=== PATIENT | female | born 1975 | race Caucasian/White ===

== ENCOUNTER → 2018-10-15 08:29 | Outpatient (CLI) | payer OTHER, SELFPAY ==
[2018-10-15 08:37] LABS: Mucous, Urine 0 SEEN /hpf (<or=2+); Red Blood Cells-Urine 0 SEEN /hpf (0-5); Squamous Epithelial Cells - UA 0 SEEN /hpf (5-10); White Blood Cells 0 SEEN /hpf (0-5)
[2018-10-15 10:14] LABS: Absolute Lymphocyte Count 2.08 X10^3/ul (0.83-4.51); Absolute Neutrophil Count 2.3 X10^3/uL (2.0-7.7); Basophil# 0.01 X10^3/uL; Basophil% 0.2 % (0-1); Eosinophil# 0.06 X10^3/uL; Eosinophils% 1.3 % (0-5); Hemoglobin 14.4 g/dl (12.0-15.0); Lymphocyte # 2.08 X10^3/ul (4.0); Lymphocyte % 44.3 % (19-41); Mean Corp Hgb Conc 34.3 g/gl (32-36); Mean Corpuscular Hgb 30.5 pg (27.0-32.0); Mean Platelet Vol. 10.4 fl (6.2-12.0); Monocyte# 0.22 X10^3/uL; Monocyte% 4.7 % (0-10); Neutrophil # 2.32 X10^3/uL (2.7-7.7); Neutrophil % 49.5 % (47-70); Platelet Count 262 K/mm3 (150-450); RBC Distribution Width CV 12.7 % (11.6-14.6); RBC Distribution Width SD 41.5 fl (35.1-43.9); Red Blood Count 4.72 M/mm3 (4.2-5.4); White Blood Count 4.7 K/mm3 (4.4-11.0)
[2018-10-15 10:15] LABS: Color, Urine Yellow (Yellow); Glucose, Dipstick 1000 mg/dl (Normal); Ketone-Dipstick Negative (Negative); Leukocyte Esterase-Dipstick Negative /ul (Negative); Nitrite-Dipstick Negative (Negative); Occult Blood-Urine Negative /ul (Negative); POSITIVE COUNT NO; POSITIVE DIFFERENTIAL NO; POSITIVE MORPHOLOGY NO; Protein-Dipstick Negative (Negative); Specific Gravity, Urine 1.015 (1.002-1.030); Urine Bilirubin Dipstick Negative (Negative); Urine Clarity Clear (Clear); Urine Urobilinogen Normal (Normal)
[2018-10-15 10:24] LABS: Bacteria RARE /hpf (None Seen); Yeast-Urine 1+ /hpf (None Seen)
[2018-10-15 10:37] LABS: Microalbumin,Random Urine 7.2 mg/L (NO RANGE EST.); Microalbumin:Creatinine Ratio 5.6 mg/g CRE (<30 mg/g CRE)
[2018-10-15 10:47] LABS: ALB/GLOB Ratio 1.1 RATIO (0.9-2.4); AST(SGOT) 19 U/L (15-37); Alanine Aminotransfer ALT/SGPT 64 U/L (13-56); Alkaline Phosphatase 88 U/L (45-117); Anion Gap 9 (5-15); BUN 12 mg/dL (7-18); BUN/Creat Ratio 14.3 RATIO (10-20); Calcium,Total 8.7 mg/dL (8.5-10.1); Chloride 100 mmol/L (98-107); Cholesterol 174 mg/dL (200); Creatinine, Serum 0.84 mg/dL (0.55-1.02); EST Glomerular Filtration Rate 79 mL/min (>60); Est Glom Filt Rate - Afr Amer 96 mL/min (>60); Globulin 3.5 g/dL (2.2-4.2); Glucose 292 mg/dL (74-106); Hemoglobin A1c 10.7 % (4.2-6.3); High Density Lipoprotein 32 mg/dL; Potassium 4.1 mmol/L (3.5-5.1); Protein, Total 7.5 g/dL (6.4-8.2); Sodium Level 136 mmol/L (136-145); Thyroid Stim Hormone (TSH) 0.65 uIU/mL (0.358-3.74); Triglycerides 366 mg/dL; Very Low Density Lipoprotein 73 mg/dL (5-40)
--- OUTSIDE RECORDS SUMMARY | 2018-12-17 09:03 | XMS RPT_ITS ---
:1975 Author Organization OHIP Care Team Providers Name Role Phone JAK ELLINGTON Attending Unavailable MINNIE BRYAN, DINORA Stokes Attending Unavailable LIMA QUIÑONES, NAVEEN Corado Primary Care Unavailable Naveen Sullivan Attending Unavailable Naveen Sullivan Primary Care Unavailable PROBLEMS PROBLEMS DATE TYPE CONDITION / CODE ATTENDING STATUS SOURCE 10/15/2018 Unknown E11.9 - Type 2 Naveen Sullivan Active Kathryn diabetes mellitus [facility] without Hospital complications / Repository E11.9(ICD-10) 05/20/2018 Active Unspecified JAK ELLINGTON Active [facility] perforation of [facility] tympanic membrane, Repository left ear / H72.92(ICD-10) PROCEDURES PROCEDURES No Procedure Records FoundRESULTS RESULTS CBC W/DIFF, AUTOMATED Collected: 10/15/2018 Status: F Source: KATHRYN 8:36 AM [facility] REPOSITORY TYPE CODE TESTS RESULT OUT OF RANGE REFERENCE UNITS LAB L100.1000 4.4-11.0 K/mm3 Normal WBC 4.7 LAB L100.1200 4.2-5.4 M/mm3 Normal RBC 4.72 LAB L100.1300 12.0-15.0 g/dl Normal HGB 14.4 LAB L100.1400 37-47 % Normal HCT 42.0 LAB L100.1500 81-99 fL Normal MCV 89.0 LAB L100.1600 27.0-32.0 pg Normal MCH 30.5 LAB L100.1700 32-36 g/gl Normal MCHC 34.3 LAB L100.1810 11.6-14.6 % Normal RDW CV 12.7 LAB L100.1820 35.1-43.9 fl Normal RDW SD 41.5 LAB L100.1900 150-450 K/mm3 Normal PLT 262 LAB L100.2000 6.2-12.0 fl Normal MPV 10.4 LAB L100.2100 47-70 % Normal NEUT% 49.5 LAB L100.2200 19-41 % High LY% 44.3 LAB L100.2300 0-10 % Normal MONO% 4.7 LAB L100.2400 0-5 % Normal EO% 1.3 LAB L100.2500 0-1 % Normal BASO% 0.2 LAB L100.2550 0.0-0.9 % Normal IM GRAN % 0.000 Result Comment: IG% - Immature Granulocytes (promyelocytes, myelocytes and metamyelocytes) > 1% indicates that a LEFT SHIFT is Present. LAB L100.2620 2.0-7.7 X10 3/uL Normal Absolute Neut 2.3 LAB L100.2720 0.83-4.51 X10 3/ul Normal Absolute Lymph 2.08 Performed By: #### L100.0100 #### [facility] [address] [place], [place], [address] URINALYSIS, COMPLETE Collected: 10/15/2018 Status: F Source: KATHRYN 8:36 AM [facility] REPOSITORY Order Comment: How was Urine Obtained? CLEAN CATCH TYPE CODE TESTS RESULT OUT OF RANGE REFERENCE UNITS LAB L400.3000 Yellow COLOR Normal Yellow LAB L400.3050 Clear Normal CLARITY Clear LAB L400.3200 Normal mg/dl High GLUCOSE, UR 1000 LAB L400.3300 Negative mg/dL Normal BILIRUBIN URINE Negative LAB L400.3400 Negative mg/dl Normal KETONE UR Negative LAB L400.3465 1.002-1.030 Normal SP.GR. DIPSTX 1.015 LAB L400.3550 5.0 - 8.0 pH UR Normal 6.0 LAB L400.3600 Negative mg/dl PROT Normal DIPSTX Negative LAB L400.3700 Normal mg/dl Normal UROBILI Normal LAB L400.3750 Negative Normal NITRITE UR Negative LAB L400.3780 Negative /ul Normal OCCULT BLOOD-UR Negative LAB L400.3800 Negative /ul LEUK Normal ESTERASE Negative LAB L400.4050 0-5 /hpf WBC 0 Normal SEEN LAB L400.4100 0-5 /hpf 0 Normal RBC-UA SEEN LAB L400.4150 5-10 /hpf SQUAM 0 Normal EPI SEEN LAB L400.4300 None Seen /hpf Normal BACTERIA RARE LAB L400.4350 <or=2+ /hpf 0 Normal MUCUS, URINE SEEN LAB L400.5200 None Seen /hpf 1+ Normal YEAST-URINE Performed By: #### L400.0001 #### [facility] [address] [place], [address] MICROALB:CREAT Collected: 10/15/2018 Status: F [facility]36 AM [facility] REPOSITORY TYPE CODE TESTS RESULT OUT OF RANGE REFERENCE UNITS LAB L501.1200 NO RANGE EST. mg/dL Normal UR CREAT 128.00 LAB L502.0500 NO RANGE EST. mg/L Normal 7.2 MICROALBUMIN ,UR LAB L502.0600 <30 mg/g CRE mg/g CRE Normal 5.6 MALB:CREAT Performed By: #### L502.0250 #### [facility] [address] [place], [place], [address] COMPREHENSIVE METABOLIC Collected: 10/15/2018 Status: F Source: K[place]HRYN [facility] 8:36 AM [facility] REPOSITORY TYPE CODE TESTS RESULT OUT OF RANGE REFERENCE UNITS LAB L501.0100 74-106 mg/dL High GLU 292 Result Comment: Glucose result greater than or equal to 200 mg/dL suggests DIABETES MELLITUS per A.D.A. criteria. Please note revised GLUCOSE reference range effective 2017. LAB L501.1000 7-18 mg/dL Normal BUN 12 LAB L501.1100 0.55-1.02 mg/dL Normal CREAT,SERUM 0.84 Result Comment: The validity of the calculated GFR AND GFRAA in patients over 70 years has not been determined. Clinical correlation is essential. LAB L501.1110 >60 mL/min Normal EST GFR 79 Result Comment: Non- GFR Calc LAB L501.1115 >60 mL/min Normal EST GFR - AA 96 Result Comment: GFR Calc LAB L501.1300 10-20 RATIO Normal BUN/CRE 14.3 LAB L501.1500 6.4-8.2 g/dL T Normal PROT 7.5 LAB L501.1800 3.2-5.0 g/dL Normal ALB 4.0 LAB L501.1950 2.2-4.2 g/dL Normal GLOB 3.5 LAB L501.2000 0.9-2.4 RATIO Normal A/G 1.1 LAB L501.2200 8.5-10.1 mg/dL CA Normal 8.7 LAB L501.4100 15-37 U/L Normal AST 19 LAB L501.4305 45-117 U/L Normal ALK P 88 LAB L501.4405 13-56 U/L High ALT 64 LAB L501.4600 0.20-1.00 mg/dL T Normal BILI 0.60 LAB L501.5300 136-145 mmol/L NA Normal 136 LAB L501.5600 3.5-5.1 mmol/L K Normal 4.1 LAB L501.5900 98-107 mmol/L CL Normal 100 LAB L501.6100 21.0-32.0 mmol/L Normal CO2 27.0 LAB L501.6200 5-15 Normal GAP 9 Performed By: #### L500.4050, L500.4100, L501.9520 #### [facility] [address] [place], [address] LIPID PROFILE Collected: 10/15/2018 Status: F Source: [place] 8:36 AM [facility] REPOSITORY TYPE CODE TESTS RESULT OUT OF RANGE REFERENCE UNITS LAB L501.4900 200 mg/dL Normal CHOL 174 Result Comment: <200 mg/dL Desirable 200-240 mg/dL Borderline >240 mg/dL High Risk LAB L501.5000 mg/dL High TRIG 366 Result Comment: The drugs N-Acetylcysteine and Metamizole may falsely depress this assay. Serum Triglycerides Reference Interval Normal <150 mg/dL Borderline high 150 - 199 mg/dL High 200 - 499 mg/dL Very High > or = 500 mg/dL LAB L501.6400 mg/dL Low HDL 32 Result Comment: The drugs N-Acetylcysteine and Metamizole may falsely depress this assay. Reference Range HDL <40 mg/dL Low HDL Cholesterol HDL >or= 60 mg/dL High HDL Cholesterol LAB L501.6500 0-130 mg/dL Normal LDL 69 LAB L501.6600 5-40 mg/dL High VLDL 73 Performed By: #### L500.4050, L500.4100, L501.9520 #### [facility] [address] [place], [address] THYROID STIM HORMONE Collected: 10/15/2018 Status: F Source: KATHRYN (TSH) 8:36 AM [facility] REPOSITORY TYPE CODE TESTS RESULT OUT OF RANGE REFERENCE UNITS LAB L501.9520 0.358-3.74 uIU/mL Normal TSH 0.65 Performed By: #### L500.4050, L500.4100, L501.9520 #### [facility] [address] [place], [address] HEMOGLOBIN A1C Collected: 10/15/2018 Status: F Source: KATHRYN 8:36 AM [facility] REPOSITORY TYPE CODE TESTS RESULT OUT OF RANGE REFERENCE UNITS LAB L501.9985 4.2-6.3 % High HGB A1C 10.7 Performed By: #### L501.9985 #### [facility] [address] [place], [address] Observed: 09/26/2018 Status: F Source: [facility] 3:49 AM [facility] REPOSITORY . MICRO - Microbiology PROCEDURE: Beta Strep Antigen with Cult if Ind [*1] SOURCE: Throat BODY SITE: COLLECTED DATE/TIME: 09/26/2018 03:49 EST RECEIVED DATE/TIME: 09/26/2018 03:52 EST START DATE/TIME: 09/26/2018 03:52 EST FREE TEXT SOURCE: FINAL REPORTS Final Report [] Verified Date/Time/Personnel: 09/26/2018 04:02 EST Group A streptococcus Antigen Antigen Screen: Positive for Group A Strep COMMENT: Results are not quantitative. Positive results have been reported in carriers and individuals having low numbers of beta Strep. False positive results have been reported. Performing Locations *1: This test was performed at: [address] [place], [address] , [place] Performed By: #### BSA #### [facility] [address] [place] [id number] PROGRESS Observed: 05/20/2018 Status: COMPLETED Source: YOLANDA 1:22 PM [facility] REPOSITORY HNO ID: [id number] Author: Jak Ellington Service: (none) Author Type: Physician Type: Progress Notes Filed: 05/20/2018 1:46 PM Note Text: Patient presents with: Ear Pain: left HPI: Feeling left ear pain for 3 days. Positive symptoms: left Earache, blood and waxy drainage this morning, hoarse voice, Post nasal drainage? 3 ear infections per year. Negative symptoms: Cough, Nasal Congestion, Rhinorrhea, Fever, URI, OTC: otitis externa drops hurt significantly last night qtip use in the distal canal. Hx of TM tubes as a young child. PAST MEDICAL HISTORY Diagnosis Date - Abnormal glandular Papanicolaou smear of cervix 2001 Abn. Pap smear (cervix) - DEPRESSION 2009 AFTER MISCARRIAGE - Diabetes mellitus of mother, complicating , childbirth, or the puerperium, unspecified as to episode of care(648.00) Gestational diabetes - Diabetes, gestational - Elevated liver enzymes 06/2009 s/p gall bladder removal - Irregular periods - PCOS (polycystic ovarian syndrome) - Psoriasis - Unspecified asthma(493.90) mild - Varicosities VARICOSE VEIN RIGHT LEG PAST SURGICAL HISTORY Procedure Laterality Date - DELIVERY ONLY , low transverse x 2 - COLPOSCOPY (VAGINOSCOPY) 2001 Colposcopy - DANDC, DIAG AND/OR THERAPEUTIC 07/21/2010 Dilation AND curettage and Dx Laparoscopy - HERNIA REPAIR W/MESH 05/2012 abdominal wall pubic bone to suprapubic - HYSTERECTOMY HX N/A 2012 C-HYST for accreta - Total Hysterectomy and Bilateral salpingectomy - INSERTION OF IUD 09/13/2009 Mirena - IUD REMOVAL (RECREATION [employer] DE[employer])_*FL 04/08/2010 - LAPAROSCOPIC CHOLEYCYSTECTOMY 03/2012 Cholecystectomy, lap - REMOVAL ADENOIDS,PRIMARY,<12 Y/O Adenoidectomy - REMOVAL OF TONSILS,<12 Y/O Tonsillectomy MEDICATIONS: Current Outpatient Prescriptions: fluticasone (FLONASE) 50 mcg/actuation nasal spray Use 1 [facility] [place] in each nostril once daily. VITAMIN A ORAL Take by mouth. metFORMIN (GLUCOPHAGE) 500 mg tablet Take 1 tablet by mouth daily with breakfast. CALCIUM CARBONATE/VITAMIN D3 (VITAMIN D-3 ORAL) Take by mouth. FLUTICASONE PROPIONATE (FLONASE NASAL) Use in the nose. No current facility-administered medications for this visit. Facility-Administered Medications Ordered in Other Visits: insulin NPH human 12 Units injection (intermediate acting) (NovoLIN N, HumuLIN N) 12 Units SUBCUTANEOUS AT BEDTIME insulin lispro 10 Units injection (rapid acting) (HumaLOG) 10 Units SUBCUTANEOUS DAILY wDINNER insulin lispro 5 Units injection (rapid acting) (HumaLOG) 5 Units SUBCUTANEOUS DAILY wLUNCH insulin lispro injection (rapid acting) (HumaLOG) SUBCUTANEOUS w MEALS AND HS insulin lispro 10 Units injection (rapid acting) (HumaLOG) 10 Units SUBCUTANEOUS DAILY WITH BREAKFAST ALLERGIES: ALLERGIES Allergen Reactions - Flowering Trees [Tr* Other: See Comments lilac = sneezing VITALS: BP 112/80 Pulse 64 Temp 36.6 ?C (97.9 ?F) (Left Tympanic) Resp 16 Wt 102.5 kg (226 lb) LMP 12/28/2012 ? No BMI 37.61 kg/m? PHYSICAL EXAM: GEN: Pleasant, in no acute distress. HEENT: PERRL, EOMI, conjunctiva clear Ears: canals clear, left tympanic membrane has scaring is translucent, +erythema, round perforation at 7:[facility] between the umbo and the peripheral border, no drainage. RTM without erythema, bulge, or effusion Sinuses: non-tender frontal sinus, non-tender maxillary sinuses Throat: moist mucous membranes, no erythema, no exudate Neck: supple, no thyromegaly, no lymphadenopathy HEART: regular rate and rhythm, no murmurs LUNGS: clear to auscultation, no wheezes or crackles, no increased WOB ASSESSMENT/PLAN: 1. Perforation of left tympanic membrane - ICD9: 384.20, ICD10: H72.92 - CONSULT TO ENT - AMOXICILLIN 875 MG-POTASSIUM CLAVULANATE 125 MG TABLET Jak Ellington MD CNOV Observed: 05/20/2018 Status: COMPLETED Source: [place] 1:15 PM [facility] REPOSITORY Office Visit (WSTR) MAYUR RAMOS ([id number]) 1975 F Date Time Provider Department 05/20/18 1:15 PM JAK ELLINGTON [facility] During your visit today, we recorded the following information about you: Temperature Pulse Respiration Blood pressure 97.9 degrees 64/minute 16/minute 112/80 Weight 102.5 kg Jak Ellington MD 05/20/2018 1:46 PM Signed Patient presents with: Ear Pain: left HPI: Feeling left ear pain for 3 days. Positive symptoms: left Earache, blood and waxy drainage this morning, hoarse voice, Post nasal drainage? 3 ear infections per year. Negative symptoms: Cough, Nasal Congestion, Rhinorrhea, Fever, URI, OTC: otitis externa drops hurt significantly last night qtip use in the distal canal. Hx of TM tubes as a young child. PAST MEDICAL HISTORY Diagnosis Date - Abnormal glandular Papanicolaou smear of cervix 2001 Abn. Pap smear (cervix) - DEPRESSION 2009 AFTER MISCARRIAGE - Diabetes mellitus of mother, complicating , childbirth, or the puerperium, unspecified as to episode of care(648.00) Gestational diabetes - Diabetes, gestational - Elevated liver enzymes 06/2009 s/p gall bladder removal - Irregular periods - PCOS (polycystic ovarian syndrome) - Psoriasis - Unspecified asthma(493.90) mild - Varicosities VARICOSE VEIN RIGHT LEG PAST SURGICAL HISTORY Procedure Laterality Date - DELIVERY ONLY , low transverse x 2 - COLPOSCOPY (VAGINOSCOPY) 2001 Colposcopy - DANDC, DIAG AND/OR THERAPEUTIC 07/21/2010 Dilation AND curettage and Dx Laparoscopy - HERNIA REPAIR W/MESH 05/2012 abdominal wall pubic bone to suprapubic - HYSTERECTOMY HX N/A 2012 C-HYST for accreta - Total Hysterectomy and Bilateral salpingectomy - INSERTION OF IUD 09/13/2009 Mirena - IUD REMOVAL (RECREATION [employer] DE[employer])_*FL 04/08/2010 - LAPAROSCOPIC CHOLEYCYSTECTOMY 03/2012 Cholecystectomy, lap - REMOVAL ADENOIDS,PRIMARY,<12 Y/O Adenoidectomy - REMOVAL OF TONSILS,<12 Y/O Tonsillectomy MEDICATIONS: Current Outpatient Prescriptions: fluticasone (FLONASE) 50 mcg/actuation nasal spray Use 1 [facility] [place] in each nostril once daily. VITAMIN A ORAL Take by mouth. metFORMIN (GLUCOPHAGE) 500 mg tablet Take 1 tablet by mouth daily with breakfast. CALCIUM CARBONATE/VITAMIN D3 (VITAMIN D-3 ORAL) Take by mouth. FLUTICASONE PROPIONATE (FLONASE NASAL) Use in the nose. No current facility-administered medications for this visit. Facility-Administered Medications Ordered in Other Visits: insulin NPH human 12 Units injection (intermediate acting) (NovoLIN N, HumuLIN N) 12 Units SUBCUTANEOUS AT BEDTIME insulin lispro 10 Units injection (rapid acting) (HumaLOG) 10 Units SUBCUTANEOUS DAILY wDINNER insulin lispro 5 Units injection (rapid acting) (HumaLOG) 5 Units SUBCUTANEOUS DAILY wLUNCH insulin lispro injection (rapid acting) (HumaLOG) SUBCUTANEOUS w MEALS AND HS insulin lispro 10 Units injection (rapid acting) (HumaLOG) 10 Units SUBCUTANEOUS DAILY WITH BREAKFAST ALLERGIES: ALLERGIES Allergen Reactions - Flowering Trees [Tr* Other: See Comments lilac = sneezing VITALS: BP 112/80 Pulse 64 Temp 36.6 ?C (97.9 ?F) (Left Tympanic) Resp 16 Wt 102.5 kg (226 lb) LMP 12/28/2012 ? No BMI 37.61 kg/m? PHYSICAL EXAM: GEN: Pleasant, in no acute distress. HEENT: PERRL, EOMI, conjunctiva clear Ears: canals clear, left tympanic membrane has scaring is translucent, +erythema, round perforation at 7:00 [facility] between the umbo and the peripheral border, no drainage. RTM without erythema, bulge, or effusion Sinuses: non-tender frontal sinus, non-tender maxillary sinuses Throat: moist mucous membranes, no erythema, no exudate Neck: supple, no thyromegaly, no lymphadenopathy HEART: regular rate and rhythm, no murmurs LUNGS: clear to auscultation, no wheezes or crackles, no increased WOB ASSESSMENT/PLAN: 1. Perforation of left tympanic membrane - ICD9: 384.20, ICD10: H72.92 - CONSULT TO ENT - AMOXICILLIN 875 MG-POTASSIUM CLAVULANATE 125 MG TABLET Jak Ellington MD Referring Provider: SELF [200] Allergies As of Date: 05/20/2018 Noted Allergy Reaction FLOWERING TREES (TREES) 08/01/2013 14 - Other: See Comments Comments: lilac = sneezing Date Reviewed: 05/20/2018 Reviewed by: Magalys Peoples Ma - Fully Assessed Reason for Visit: Ear Pain [817] Cmt: left Primary Visit Diagnosis:Perforation of left tympanic membrane [H72.92] Order(s):CONSULT TO ENT [9008] Order #: [id number]: 1 amoxicillin-clavulanic acid (AUGMENTIN) 875-125 mg per tabletTake 1 tablet by mouth twice daily for 7 days.Disp: 14 tabletRfl: 0 Prescriptions as of 05/20/2018 Sig: FLUTICASONE 50 MCG/ACTUATION * Use 1 [facility] in each nostril o* VITAMIN A ORAL Take by mouth. METFORMIN 500 MG TABLET Take 1 tablet by mouth daily * VITAMIN D-3 ORAL Take by mouth. AMOXICILLIN 875 MG-POTASSIUM * Take 1 tablet by mouth twice * FLONASE NASAL Use in the nose. Problem List As Of Date 05/20/2018 Noted Resolved Diabetes Mellitus, Antepartum [O24.919] INVALID FOR*05/24/2009 Supervision of Normal First [Z34.00] INVALID FOR*05/24/2009 IUD surveillance [Z30.431] INVALID FOR*07/18/2010 Abdominal pain, right lower quadrant [R10.31] INVALID FOR*05/02/2011 Elevated liver enzymes [R74.8] INVALID FOR*10/13/2011 Other and unspecified ovarian cyst [N83.209] INVALID FOR*10/13/2011 Missed [O02.1] INVALID FOR*10/13/2011 Abdominal pain, right upper quadrant [R10.11] INVALID FOR*10/13/2011 Unspecified high-risk [O09.90] INVALID FOR*11/29/2011 Previous delivery, antepartum conditio*INVALID FOR*11/29/2011 Gestational diabetes mellitus, class A1 [O24.41*INVALID FOR*11/29/2011 PCOS (polycystic ovarian syndrome) [E28.2] INVALID FOR* Advanced maternal age in [TRA0370] INVALID FOR*09/11/2016 More... History of [Z98.891] INVALID FOR*09/11/2016 More... History of depression [Z86.59] INVALID FOR* More... Abnormal laboratory test result [R89.9] INVALID FOR* More... History of asthma [Z87.09] INVALID FOR* More... More... Hearing deficit [H91.90] INVALID FOR* More... Varicose veins [I83.90] INVALID FOR* More... Immunization due [Z23] INVALID FOR* More... Gestational diabetes [O24.419] INVALID FOR*09/11/2016 More... High-risk , elderly multigravida [O09.*INVALID FOR*09/11/2016 More... UTI in [O23.40] INVALID FOR*09/11/2016 Placenta previa with hemorrhage, antepartum [O4*INVALID FOR*09/11/2016 Placenta accreta in third trimester [O43.213] INVALID FOR*09/11/2016 Elderly multigravida with antepartum condition *INVALID FOR*09/11/2016 Obesity in , antepartum [O99.210] INVALID FOR*09/11/2016 Excessive growth affecting management of *INVALID FOR* Transverse lie with problem [O32.2XX0]INVALID FOR*09/11/2016 Wound cellulitis [L03.90] INVALID FOR*09/11/2016 Prescriptions ordered this encounter Disp Refills Start End AMOXICILLIN 875 MG-POTASSIUM CLAVULA* 14 t* 0 05/20/2018 05/27/2018 Route: ORAL Sig: Take 1 tablet by mouth twice daily for 7 days. Encounter Status:Closed by JAK ELLINGTON MD on 05/20/18 ALLERGIES ALLERGIES DATE TYPE / CODE NAME / CODE REACTION SEVERITY SOURCE 11/29/2015 Drug No Known Unknown [facility] Allergy/4160 Allergies/F00 Hospital 70148(SNOMED 1848453(RXNOR Repository CT) M) 08/01/2013 Environ/4201 TREES OTHER: SEE C [facility] [address]248(SNOMED [facility] [place] [facility]) Repository ENCOUNTERS ENCOUNTERS ADMIT/DISCHARGE ACCOUNT NUMBER ADMITTING ENCOUNTER LOCATION SOURCE CLASS 10/15/2018 [id number] Ambulatory [facility] ding:[id number] Repository 09/26/2018/09/26/19 [id number] Emergency BBuilding:SHAHNAZ Neal [address] [place] [address] Repository 05/20/2018/05/21/20 [id number] Ambulatory [address] Repository PAYERS PAYERS ENCOUNTER GUARANTOR PAYER SUBSCRIBER SOURCE 10/15/2018 Matt Corado Primary MAYUR Duqueoster [id number] [facility] Number: [id number] [place] [id number] Repository [address]Bup: 330) Date:7708-11-75BD [phone] () [address] [place] [phone]: 10/15/2018 [facility]LF [facility] Number: Effective Repository Date:2018-10-15 09/26/2018 MAYUR Gomes Primary [facility] [id number] [employer] Number: [id number] Repository [place] Effective [place], [place] Date:2018-09-26 [place] [address]~[facility] [id number] Name:[id number] [id number]: [phone] [phone] Tel: [phone] ([phone] ([phone] ([phone])
== END ==
PROVIDERS: Family Provider Family Medicine; PCP Family Medicine; Visit Provider Family Medicine
DX: E11.9 Type 2 diabetes mellitus without complications (principal)
CPT/HCPCS: 36415; 80053; 80061; 81001; 82043; 82570; 83036; 84443; 85025

== ENCOUNTER → 2019-05-27 08:55 | Outpatient (CLI) | payer OTHER, SELFPAY ==
[2019-05-27 10:22] LABS: Absolute Lymphocyte Count 2.24 X10^3/uL (0.83-4.51); Absolute Neutrophil Count 3.8 X10^3/uL (2.0-7.7); Basophil# 0.03 X10^3/uL; Basophil% 0.5 % (0-1); Eosinophil# 0.11 X10^3/uL; Eosinophils% 1.7 % (0-5); Hematocrit 40.3 % (37-47); Hemoglobin 13.7 g/dL (12.0-15.0); Lymphocyte # 2.24 X10^3/ul (4.0); Lymphocyte % 34.4 % (19-41); Mean Corpuscular Hgb 30.9 pg (27.0-32.0); Mean Corpuscular Volume 90.8 fL (81-99); Mean Platelet Vol. 9.8 fl (6.2-12.0); Monocyte# 0.29 X10^3/uL; Monocyte% 4.4 % (0-10); NRBC Flagged by Analyzer 0 % (0-5); Neutrophil # 3.83 X10^3/uL (2.7-7.7); Neutrophil % 58.7 % (47-70); Platelet Count 239 K/mm3 (150-450); RBC Distribution Width CV 12.6 % (11.6-14.6); RBC Distribution Width SD 41.9 fl (35.1-43.9); Red Blood Count 4.44 M/mm3 (4.2-5.4); White Blood Count 6.5 K/mm3 (4.4-11.0)
[2019-05-27 10:30] LABS: International Normalized Ratio 1.1; Prothrombin Time (Protime)PT. 13.5 SECONDS (11.7-14.9)
[2019-05-27 10:48] LABS: Hemoglobin A1c 5.5 % (4.2-6.3)
[2019-05-27 10:49] LABS: ALB/GLOB Ratio 0.9 RATIO (0.9-2.4); AST(SGOT) 28 U/L (15-37); Alanine Aminotransfer ALT/SGPT 80 U/L (13-56); Albumin, Serum 3.9 g/dL (3.2-5.0); Alkaline Phosphatase 100 U/L (45-117); Anion Gap 6 (5-15); BUN 9 mg/dL (7-18); BUN/Creat Ratio 10.1 RATIO (10-20); Calcium,Total 8.9 mg/dL (8.5-10.1); Chloride 105 mmol/L (98-107); Creatinine, Serum 0.89 mg/dL (0.55-1.02); EST Glomerular Filtration Rate 74 mL/min (>60); Est Glom Filt Rate - Afr Amer 89 mL/min (>60); Globulin 4.4 g/dL (2.2-4.2); Glucose 121 mg/dL (74-106); Potassium 4.5 mmol/L (3.5-5.1); Protein, Total 8.3 g/dL (6.4-8.2); Sodium Level 136 mmol/L (136-145)
== END ==
PROVIDERS: Family Provider Family Medicine; PCP Family Medicine; Referring Provider Family Medicine; Visit Provider Family Medicine
DX: K43.2 Incisional hernia without obstruction or gangrene (principal)
CPT/HCPCS: 36415; 80053; 83036; 85025; 85610

== ENCOUNTER → 2019-06-06 14:50 | Outpatient (CLI) | payer OTHER, SELFPAY ==
[2019-06-02 13:16] VITALS: BMI 36.8
--- NOTE | 2019-06-06 14:56 | CT_ITS ---
STUDY: CT ABDOMEN AND PELVIS WITH CONTRAST REASON FOR EXAM: Female, 44 years old. Incisional hernia left lower quadrant and umbilical pain RADIATION DOSAGE (If Supplied By Facility): CTDIvol = ( 16.99 ) mGy, DLP = ( 1342.65 ) mGycm TECHNIQUE: CT images were obtained from the dome of the diaphragm to the symphysis pubis without oral contrast. 100 IV/Oral Isovue 300 was administered. Sagittal and coronal images were reconstructed. Individualized dose optimization techniques were used for this CT. COMPARISON: 20 March 2017 FINDINGS: The visualized lung bases are unremarkable. The visualized portions of the heart are within normal limits. Normal liver. Gallbladder is surgically removed. There is no biliary dilation.. Normal spleen. Normal pancreas. There is a 1.6 cm left adrenal lesion, incompletely characterized on this single phase exam. This was present in 2017 and stable, most probably representing benign adrenal adenoma. Normal right kidney. Normal left kidney. There is no intestinal obstruction. Normal abdominal aorta. Normal inferior vena cava. Normal retroperitoneum. Normal urinary bladder. Uterus is surgically removed. There is a small paraumbilical hernia with a wide opening containing fat. There are no associated bowel loops or inflammatory change. Inguinal canals are closed. There is an infraumbilical midline vertical incision. Normal osseous structures. CT/Abdomen/Pelvis WITH Contrast IMPRESSION: 1. Small fat-containing paraumbilical incisional hernia. 2. Presumed left 1.6 cm adrenal adenoma. Correlation with endocrinologic profiles is advised. Electronically Signed: Apolinar Garza, at 15:26 EDT Tel , Service support ,
== END ==
PROVIDERS: Family Provider Family Medicine; PCP Family Medicine; Referring Provider Family Medicine; Visit Provider Family Medicine
DX: K43.2 Incisional hernia without obstruction or gangrene (principal)
CPT/HCPCS: 74177; Q9967

== ENCOUNTER 2019-06-24 17:36 | Inpatient (IN) | payer OTHER, SELFPAY ==
[2019-06-09 09:11] VITALS: BMI 36.8
[2019-06-24] VITALS (9 sets, daily range): BP systolic 100–133; BP diastolic 63–89; PULSE 98–114; RESP 14–22; TEMP 37.6–39.4; O2SAT 93–98; BMI 37.3; BMI 38.2
--- NOTE | 2019-06-24 18:05 | EKG12_ITS ---
Test Reason : FEVER Blood Pressure : / mmHG Vent. Rate : 104 BPM Atrial Rate : 104 BPM P-R Int : 132 ms QRS Dur : 084 ms QT Int : 338 ms P-R-T Axes : 030 -13 026 degrees QTc Int : 444 ms Sinus tachycardia Otherwise normal ECG Confirmed by JAM COLLINS ([id number]), video editor KAYCEE STALLINGS ([id number]) on 06/30/2019 12:06:31 PM Referred By: Baltazar Cole Confirmed By:JAM COLLINS
--- NOTE | 2019-06-24 18:10 | RAD_ITS ---
STUDY: X-RAY CHEST REASON FOR EXAM: Female, 44 years old. Fever TECHNIQUE: Single frontal view of the chest. COMPARISON: September 19, 2016 FINDINGS: Right upper lobe airspace disease. There is no demonstrated pleural abnormality. Normal size heart. Normal mediastinum and caio. Normal visualized pulmonary arteries. Normal visualized aortic arch and descending thoracic aorta. Normal visualized thoracic spine. Normal visualized ribs, clavicles, and shoulders. There is no demonstrated abnormality of the visualized soft tissue structures of the upper abdomen. RAD/Chest 1 View (Portable) IMPRESSION: Right upper lobe airspace disease. Recommend follow-up to resolution. Electronically Signed: Jak Weston MD at 18:28 EDT , Service support ,
--- NOTE | 2019-06-24 18:11 | NURSING ---
NO OLD EKGS
[2019-06-24 18:17] LABS: Absolute Lymphocyte Count 1.09 X10^3/uL (0.83-4.51); Basophil# 0.04 X10^3/uL; Basophil% 0.5 % (0-1); Eosinophil# 0.01 X10^3/uL; Eosinophils% 0.1 % (0-5); Hematocrit 39.8 % (37-47); Hemoglobin 13.7 g/dL (12.0-15.0); Lymphocyte # 1.09 X10^3/ul (4.0); Lymphocyte % 14.3 % (19-41); Mean Corp Hgb Conc 34.4 g/dL (32-36); Mean Corpuscular Hgb 30.7 pg (27.0-32.0); Mean Corpuscular Volume 89.2 fL (81-99); Mean Platelet Vol. 9.5 fl (6.2-12.0); Monocyte# 0.48 X10^3/uL; Monocyte% 6.3 % (0-10); NRBC Flagged by Analyzer 0 % (0-5); Neutrophil # 5.98 X10^3/uL (2.7-7.7); Neutrophil % 78.4 % (47-70); Platelet Count 195 K/mm3 (150-450); RBC Distribution Width CV 12.7 % (11.6-14.6); RBC Distribution Width SD 42.1 fl (35.1-43.9); Red Blood Count 4.46 M/mm3 (4.2-5.4); White Blood Count 7.6 K/mm3 (4.4-11.0)
[2019-06-24 18:21] LABS: International Normalized Ratio 1.1
[2019-06-24] MEDS: 0.9% Normal Saline 1,000 ML 999 ML IV ×4 (18:28→21:56)
[2019-06-24] MEDS: Ketorolac 30 MG/ML Syringe IV (18:29)
[2019-06-24] MEDS: Ipratropium/Albuterol Sulfate 3 ML AMPUL.NEB INHALATION (18:33)
[2019-06-24 18:34] LABS: Lactic Acid 1.1 mmol/L (0.4-2.0)
[2019-06-24 18:35] LABS: ALB/GLOB Ratio 0.9 RATIO (0.9-2.4); AST(SGOT) 76 U/L (15-37); Alanine Aminotransfer ALT/SGPT 154 U/L (13-56); Albumin, Serum 3.8 g/dL (3.2-5.0); Alkaline Phosphatase 170 U/L (45-117); Anion Gap 11 (5-15); BUN 8 mg/dL (7-18); Calcium,Total 8.7 mg/dL (8.5-10.1); Chloride 102 mmol/L (98-107); Creatinine, Serum 0.89 mg/dL (0.55-1.02); EST Glomerular Filtration Rate 74 mL/min (>60); Est Glom Filt Rate - Afr Amer 90 mL/min (>60); Globulin 4.4 g/dL (2.2-4.2); Glucose 127 mg/dL (74-106); Protein, Total 8.2 g/dL (6.4-8.2); Sodium Level 137 mmol/L (136-145)
[2019-06-24 18:38] LABS: Internal QC Validated? YES +Cl - CLEAR BKGD; Pregnancy, Serum, hCG Quali. NEGATIVE Negative
--- NOTE | 2019-06-24 18:53 | NURSING ---
I&O enter for wasted bolus in IV flowsheet. This RN verified with ER nurse that patient received entire 1L in less time that 1hr off pump.
--- NOTE | 2019-06-24 19:52 | HP.PCM_ITS ---
Problem List (1) Sepsis Status: Acute (2) Community acquired pneumonia Status: Acute History of Present Illness Date of Admission: 06/24/19 Chief Complaint: Fever The patient is a 44 year old F with a significant history of diabetes mellitus; and adrenal adenoma who presents emergency department with a 2-day history of progressively worsening fever. She reports a fever of around 103. Associated if her symptoms is severe headache; chest heaviness; chills; nausea; some mild shortness of breath and some occasional cough. Importantly her 5-year-old's child was recently diagnosed with pneumonia. The emergency department patient was found to have a temperature of 102.8; and tachycardia. Chest x-ray was remarkable for right upper lobe airspace disease. Past Medical History Medical History: Medical History (Last Reviewed 06/24/19 @ 22:44 by Baltazar Cole MD) Abdominal pain R10.9 Back pain M54.9 Depression F32.9 Diabetes E11.9 GERD (gastroesophageal reflux disease) K21.9 Allergies No Known Allergies Allergy (Verified 06/24/19 17:36) Home Medications: Ambulatory Orders Medication Instructions Recorded cholecalciferol (vitamin D3) 1,000 1,000 unit PO DAILY 06/02/19 unit capsule metformin 1,000 mg tablet 1,000 mg PO BID 06/02/19 pioglitazone 15 mg tablet 15 mg PO DAILY 06/02/19 Multivitamin/Iron/Folic Acid 1 tab PO DAILY 06/24/19 [Centrum Women Tablet] Vitamin A 8,000 unit PO DAILY 06/24/19 Surgical History: Surgical History (Last Reviewed 06/24/19 @ 22:44 by Baltazar Cole MD) History of section Z98.891 History of hernia repair Z98.890, Z87.19 History of laparoscopic cholecystectomy Z90.49 History of tonsillectomy and adenoidectomy Z98.890 Lives: With Family Smoking Status: Former smoker Alcohol: Rare - *Family History Paternal Family History: Family History (Last Reviewed 06/24/19 @ 22:44 by Baltazar Cole MD) Aunt Cancer Grandfather Heart disease Review of Systems Constitutional: Reports: Chills, Fever, Malaise, Weakness, Fatigue. Denies: Weight Change HEENT: Reports: Head Aches. Denies: Sinus Congestion, Sinus Drainage Cardiovascular: Reports: Heaviness. Denies: Edema, Palpitations Respiratory: Reports: Cough, Shortness of Breath, Sputum production Gastrointestinal: Reports: Nausea. Denies: Abdominal Pain, Vomiting Genitourinary: Denies: Dysuria Musculoskeletal: Denies: Joint Pain, Joint Tenderness Skin: Denies: Rash, Wounds Neurological: Denies: Numbness, Tingling, Focal weakness Psychiatric: Denies: Anxiety, Depression, Homicidal Ideations, Suicidal Ideations Hematologic/ Lymphatic: Denies: Easy Bruising, Easy Bleeding VTE Information - Inpt Only VTE Present on Admission: No VTE Mechan Device Prophylaxis: None VTE Pharm Prophylaxis ordered?: Yes Patient Problems: Active and Suspected Problems (Last Reviewed 06/24/19 @ 21:03 by Baltazar pimentel MD) Sepsis (Acute) Community acquired pneumonia (Acute) - Physical Exam General: Alert, Oriented x3, Cooperative HEENT: Atraumatic, PERRLA, EOMI, Normocephalic Neck: Supple, No JVD, Negative Carotid Bruits Lungs: Clear to auscultation, Normal air movement, No rhonchi, No wheeze, Rales Cardiovascular: No murmurs, Tachycardic Abdomen: Bowel Sounds Present, Soft, Non Tender Extremities: No edema, Capillary Refill Less than 3 Seconds Skin: No rashes, No breakdown Musculoskeletal: No Tenderness to Palpation of Joints or Extremities Neurological: Cranial nerves II-XII grossly intact Psych/Mental Status: Normal Affect, Appropriate Vital Signs Temp Pulse Resp BP Pulse Ox 102.8 F H 109 H 18 133/72 H 93 06/24/19 19:25 06/24/19 19:24 06/24/19 19:24 06/24/19 19:24 06/24/19 19:24 Oxygen Delivery Method Room Air Weight: 101.605 kg Body Mass Index (BMI) 37.3 Finger Stick Blood Glucose 119 Intake and Output for Last 24 Hours 06/22/19 06/23/19 06/24/19 23:59 23:59 23:59 Intake Total 749.30 / 749.30 Balance 749.30 / 749.30 Laboratory Tests Past 24 Hrs 06/24/19 06/24/19 06/24/19 17:55 17:55 17:55 WBC 7.6 RBC 4.46 Hgb 13.7 Hct 39.8 MCV 89.2 MCH 30.7 MCHC 34.4 RDW Std Deviation 42.1 RDW Coeff of Noemy 12.7 Plt Count 195 MPV 9.5 Immature Gran % (Auto) 0.400 Neut % (Auto) 78.4 H Lymph % (Auto) 14.3 L [place] % (Auto) 6.3 Eos % (Auto) 0.1 Baso % (Auto) 0.5 Absolute Neuts (auto) 6.0 Absolute Lymphs (auto) 1.09 Nucleated RBC % 0 PT 14.0 INR 1.1 APTT 36.0 Sodium 137 Potassium 4.0 Chloride 102 Carbon Dioxide 24.0 Anion Gap 11 BUN 8 Creatinine 0.89 Estim Creat Clear Calc 74.10 Est GFR (MDRD) Af Amer 90 Est GFR (MDRD) Non-Af 74 BUN/Creatinine Ratio 9.0 L Glucose 127 H Lactic Acid Calcium 8.7 Total Bilirubin 0.90 AST 76 H ALT 154 H Alkaline Phosphatase 170 H Troponin I < 0.015 Total Protein 8.2 Albumin 3.8 Globulin 4.4 H Albumin/Globulin Ratio 0.9 Serum , Qual 06/24/19 06/24/19 17:55 17:55 WBC RBC Hgb Hct MCV MCH MCHC RDW Std Deviation RDW Coeff of Noemy Plt Count MPV Immature Gran % (Auto) Neut % (Auto) Lymph % (Auto) [place] % (Auto) Eos % (Auto) Baso % (Auto) Absolute Neuts (auto) Absolute Lymphs (auto) Nucleated RBC % PT INR APTT Sodium Potassium Chloride Carbon Dioxide Anion Gap BUN Creatinine Estim Creat Clear Calc Est GFR (MDRD) Af Amer Est GFR (MDRD) Non-Af BUN/Creatinine Ratio Glucose Lactic Acid 1.1 Calcium Total Bilirubin AST ALT Alkaline Phosphatase Troponin I Total Protein Albumin Globulin Albumin/Globulin Ratio Serum , Qual NEGATIVE Assessment/Plan All Active Problems (Last Reviewed 06/24/19 @ 21:03 by Baltazar Cole MD) Sepsis (Acute) Community acquired pneumonia (Acute) The patient is a 44 year old F with a significant history of diabetes mellitus; and adrenal adenoma who presents emergency department with a 2-day history of progressively worsening fever; severe headache; chest heaviness; chills; nausea; some mild shortness of breath and some occasional cough who was found to have objective fever of 102.8 at the ED; tachycardia and radiographic evidence of right upper lobe airspace disease consistent with sepsis secondary to community-acquired pneumonia.. Sepsis secondary to community acquired pneumonia Patient meets sirs criteria with a T-max of 102.8 and tachycardia with heart rate of more than 90. Lactic acid: Unremarkable Chest x-ray: Right upper lobe airspace disease. Chest x-ray was independently reviewed. I agree with radiologist interpretation. Respiratory Gram stain and culture pending Antibiotics: Patient was started on ceftriaxone and azithromycin in emergency department; continued IV hydration: Received normal saline bolus in the emergency department. Normal saline infusion continued Albuterol as needed Legionella antigen screen and Strep antigen ordered Patient received Toradol in the emergency department. PRN Tylenol and PRN Toradol ordered. Acapella ordered. Diabetes mellitus On presentation her blood glucose was within goal On home Actos and metformin. Would hold metformin because of risk of lactic acidosis. Actos continued. Accu-Chek q. before meals at bedtime. Correction scale insulin added. DVT Prophylaxis Subcutaneous Lovenox Code Visit Inpatient E&M: 59896 Init Hosp L3
[2019-06-24 19:57] LABS: Mucous, Urine 0 SEEN /hpf (<or=2+)
[2019-06-24 20:01] LABS: Color, Urine Yellow (Yellow); Glucose, Dipstick Normal (Normal); Ketone-Dipstick 15 mg/dl (Negative); Leukocyte Esterase-Dipstick Negative /ul (Negative); Nitrite-Dipstick Negative (Negative); Occult Blood-Urine 10 /ul (Negative); Protein-Dipstick 15 mg/dl (Negative); Urine Bilirubin Dipstick Negative (Negative); Urine Clarity Sl. Cloudy (Clear); Urine Urobilinogen 1 mg/dl (Normal)
[2019-06-24 20:30] LABS: Bacteria RARE /hpf (None Seen); Red Blood Cells-Urine 0-5 SEEN /hpf (0-5); Squamous Epithelial Cells - UA 5-10 SEEN /hpf (5-10); White Blood Cells 0-5 SEEN /hpf (0-5)
[2019-06-24] MEDS: Acetaminophen 325 MG Tablet 650 MG PO (20:46)
[2019-06-24] MEDS: Insulin Lispro 100 UNIT/ML INSULN.PEN SC (21:02)
[2019-06-24 21:06] LABS: Bedside Glucose 165 mg/dL (70-110)
[2019-06-24] MEDS: 0.9% Normal Saline 1,000 ML 75 ML IV (21:39)
--- NOTE | 2019-06-24 22:45 | NURSING ---
Total of 3500mL NS bolus infused. Two IV sites- pt received bolus off of pump to one site. Documentation was ended when bag was dry, not after the one hour time period. This altered total volume infused.
--- NOTE | 2019-06-24 23:32 | ED.DCSUM_ITS ---
- ER Visit Summary Date of Service: 06/24/19 Chief Complaint: Fever History of Present Illness: The patient is a 44 F who reports 2 days of a high fever. She notes abdominal pain for the past week. She has a known hernia and saw Dr. Cavazos to discuss surgical options. Now she notes a cough nausea generalized myalgias headache chills and sweats. History of diabetes non- smoker. She notes the phlegm is occasionally productive. She states that she has not been able to eat or drink very much. Physical Examination: Pressure 103 heart rate of 114 respirations are 19 pulse ox 98% blood pressure 130/82 Gen: Well-nourished well-developed patient clinically appears ill Head: Normocephalic atraumatic Eyes: Perrl EOMI ENT: TMs clear no rhinorrhea moist mucous membranes Neck: Supple no lymphadenopathy no JVD nontender CVS: Regular rate tachycardic rhythm no murmurs normal S1-S2 Respiratory: No distress right-sided rhonchi chest nontender Abdomen: Soft nontender nondistended normal bowel sounds no masses Back: Nontender Extremity: Nontender no edema Skin: Normal color no rash Neuro: alert orientated ?3 CN II-XII intact normal strength sensation Psych: Normal affect normal mood Test Results: White count is normal. Glucose 127. Troponin negative. Lactic acid 1.1. Patency test is negative. Chest x-ray shows a right upper lobe infiltrate. EKG shows a sinus rhythm at a rate of 104. Emergency Department Course and Treatment: She received IV fluids Toradol Rocephin and azithromycin. Blood cultures were obtained before administration of antibiotics. In speaking with the patient she does not feel comfortable going home. She would like to be admitted for fluid hydration and further antibiotics. Impression: 1. Right upper lobe pneumonia 2. Sepsis This note was generated with [employer] dictation software. It may contain incorrect words, spelling, and punctuation that were not noted in review of the chart prior to signing ED Disposition - Plan for ED Patient: Disposition: Acute [facility]
--- NOTE | 2019-06-24 23:49 | ED.RN ---
PT RECEIVED 3000CC NS IN THE E.D. THIS NURSE WAS UNABLE TO CORRECT THE FLOW SHEET CHARTING ON I.V.'S.
[2019-06-25] VITALS (18 sets, daily range): BP systolic 112–136; BP diastolic 61–93; PULSE 91–119; RESP 16–28; TEMP 37.2–39.6; O2SAT 92–100
[2019-06-25] MEDS: Ketorolac 15 MG/ML Vial IV ×3 (00:21→21:36)
[2019-06-25] MEDS: 0.9% NaCl Peripheral Flush Adult/Peds IV ×2 (00:21→21:36)
[2019-06-25] MEDS: Acetaminophen 325 MG Tablet 650 MG PO ×4 (03:16→21:35)
[2019-06-25 03:26] LABS: Bedside Glucose 124 mg/dL (70-110)
[2019-06-25] MEDS: Albuterol 2.5 MG/3 ML VIAL.NEB. INHALATION ×2 (03:42→15:00)
[2019-06-25] MEDS: Ondansetron 4 MG/2 ML Vial IV ×2 (04:22→21:35)
[2019-06-25 05:44] LABS: Absolute Lymphocyte Count 0.62 X10^3/uL (0.83-4.51); Absolute Neutrophil Count 5.1 X10^3/uL (2.0-7.7); Basophil# 0.02 X10^3/uL; Basophil% 0.3 % (0-1); Eosinophil# 0.19 X10^3/uL; Hematocrit 32.5 % (37-47); Lymphocyte # 0.62 X10^3/ul (4.0); Lymphocyte % 9.7 % (19-41); Mean Corp Hgb Conc 33.8 g/dL (32-36); Mean Corpuscular Volume 91.5 fL (81-99); Mean Platelet Vol. 9.7 fl (6.2-12.0); Monocyte# 0.47 X10^3/uL; Monocyte% 7.3 % (0-10); NRBC Flagged by Analyzer 0 % (0-5); Neutrophil # 5.05 X10^3/uL (2.7-7.7); Neutrophil % 78.9 % (47-70); Platelet Count 153 K/mm3 (150-450); RBC Distribution Width SD 43.5 fl (35.1-43.9); Red Blood Count 3.55 M/mm3 (4.2-5.4); White Blood Count 6.4 K/mm3 (4.4-11.0)
[2019-06-25 06:05] LABS: Anion Gap 8 (5-15); BUN 6 mg/dL (7-18); BUN/Creat Ratio 7.6 RATIO (10-20); Calcium,Total 7.2 mg/dL (8.5-10.1); Chloride 109 mmol/L (98-107); Creatinine, Serum 0.79 mg/dL (0.55-1.02); EST Glomerular Filtration Rate 85 mL/min (>60); Est Glom Filt Rate - Afr Amer 103 mL/min (>60); Estimated Creatinine Clearance 83.48 ml/min; Glucose 211 mg/dL (74-106); Potassium 3.7 mmol/L (3.5-5.1); Sodium Level 139 mmol/L (136-145)
[2019-06-25] MEDS: Insulin Lispro 100 UNIT/ML INSULN.PEN SC ×3 (06:33→16:16)
--- NOTE | 2019-06-25 08:56 | PN_ITS ---
Patient Problems: Active and Suspected Problems (Last Reviewed 06/24/19 @ 22:44 by Baltazar Cole MD) Sepsis (Acute) Community acquired pneumonia (Acute) Subjective: Still with significant nausea, though she feels like she is breathing a little bit better Vitals/I&O's: Vital Signs Temp Pulse Resp BP Pulse Ox 99.2 F H 99 18 121/75 H 92 06/25/19 06:40 06/25/19 06:40 06/25/19 06:40 06/25/19 06:40 06/25/19 07:02 Oxygen Delivery Method Room Air Weight: 230 lb 2.601 oz Body Mass Index (BMI) 38.2 Finger Stick Blood Glucose 119 Intake and Output for Last 24 Hours 06/23/19 06/24/19 06/25/19 23:59 23:59 23:59 Intake Total 3788.10 / 3788.10 Output Total 1824 / 1824 Balance 3788.10 / 3788.10 -182 / -1825 General: Alert, Oriented x3, Cooperative, No apparent distress HEENT: Atraumatic, PERRLA, EOMI, Normocephalic Oral: Moist Mucosa Neck: Supple, No JVD Lungs: Clear to auscultation, Normal air movement, No rhonchi, No wheeze, No rales Cardiovascular: Regular rate, Regular Rhythm, Normal S1, Normal S2, No murmurs Abdomen: Soft, Non Tender, Non-Distended, No Hepato-splenomegaly Extremities: No edema, Capillary Refill Less than 3 Seconds Skin: No rashes, No breakdown Neurological: Neuro grossly intact, Sensory exam intact to light touch and pain Psych/Mental Status: Normal Affect, Appropriate Microbiology Past 72 Hours 06/24/19 19:45 Urine, Clean Catch Streptococcus pneumoniae Antigen (M - Final 06/24/19 19:45 Urine, Clean Catch Legionella Antigen - Final Laboratory Results 06/24/19 17:55: WBC 7.6, RBC 4.46, Hgb 13.7, Hct 39.8, MCV 89.2, MCH 30.7, MCHC 34.4, RDW Std Deviation 42.1, RDW Coeff of Noemy 12.7, Plt Count 195, MPV 9.5, Immature Gran % (Auto) 0.400, Neut % (Auto) 78.4 H, Lymph % (Auto) 14.3 L, [place] % (Auto) 6.3, Eos % (Auto) 0.1, Baso % (Auto) 0.5, Absolute Neuts (auto) 6.0, Absolute Lymphs (auto) 1.09, Nucleated RBC % 0 06/24/19 17:55: PT 14.0, INR 1.1, APTT 36.0 06/24/19 17:55: Sodium 137, Potassium 4.0, Chloride 102, Carbon Dioxide 24.0, Anion Gap 11, BUN 8, Creatinine 0.89, Estim Creat Clear Calc 74.10, Est GFR (MDRD) Af Amer 90, Est GFR (MDRD) Non-Af 74, BUN/Creatinine Ratio 9.0 L, Glucose 127 H, Calcium 8.7, Total Bilirubin 0.90, AST 76 H, ALT 154 H, Alkaline Phosphatase 170 H, Troponin I < 0.015, Total Protein 8.2, Albumin 3.8, Globulin 4.4 H, Albumin/Globulin Ratio 0.9 06/24/19 17:55: Lactic Acid 1.1 06/24/19 17:55: Serum , Qual NEGATIVE 06/24/19 19:45: Urine Color Yellow, Urine Clarity Sl. Cloudy, Urine pH 7.0, Ur Specific [place] 1.010, Urine Protein 15 H, Urine Glucose (UA) Normal, Urine Ketones 15 H, Urine Occult Blood 10 H, Urine Nitrite Negative, Urine Bilirubin Negative, Urine Urobilinogen 1 H, Ur Leukocyte Esterase Negative, Urine RBC 0-5 SEEN, Urine WBC 0-5 SEEN, Ur Squamous Epith Cells 5-10 SEEN, Urine Bacteria RARE, Urine Mucus 0 SEEN 06/24/19 20:51: POC Glucose 165 H 06/25/19 03:13: POC Glucose 124 H 06/25/19 05:25: WBC 6.4, RBC 3.55 L, Hgb 11.0 L, Hct 32.5 L, MCV 91.5, MCH 31.0, MCHC 33.8, RDW Std Deviation 43.5, RDW Coeff of Noemy 13.0, Plt Count 153, MPV 9.7, Immature Gran % (Auto) 0.800, Neut % (Auto) 78.9 H, Lymph % (Auto) 9.7 L, [place] % (Auto) 7.3, Eos % (Auto) 3.0, Baso % (Auto) 0.3, Absolute Neuts (auto) 5.1, Absolute Lymphs (auto) 0.62 L, Nucleated RBC % 0 06/25/19 05:25: Sodium 139, Potassium 3.7, Chloride 109 H, Carbon Dioxide 22.0, Anion Gap 8, BUN 6 L, Creatinine 0.79, Estim Creat Clear Calc 83.48, Est GFR (MDRD) Af Amer 103, Est GFR (MDRD) Non-Af 85, BUN/Creatinine Ratio 7.6 L, Glucose 211 H, Calcium 7.2 L Current Medications Acetaminophen (Tylenol) 650 mg PO Q6H PRN PRN PRN Reason: Mild Pain (1-3)/Temp > 100.7 F Last Admin: 06/25/19 03:16 Dose: 650 mg Documented by: Albuterol Sulfate (Ventolin Aerosols) 2.5 mg INHALATION Q2H PRN PRN PRN Reason: Shortness of Breath/Wheezing Last Admin: 06/25/19 03:42 Dose: 2.5 mg Documented by: Dextrose (D50w Syringe) 0 gm IV X1 PRN; Protocol PRN Reason: Hypoglycemia Enoxaparin Sodium (Lovenox) 40 mg SC DAILY@1000 NAYELY Glucagon () 1 mg IM .X1 PRN PRN Reason: Hypoglycemia Sodium Chloride () 1,000 mls @ 75 mls/hr IV .[id number] NAYELY Stop: 06/25/19 09:50 Last Admin: 06/24/19 21:39 Dose: 75 mls/hr Documented by: Ceftriaxone Sodium (Rocephin) 1 gm in 50 mls @ 100 mls/hr IV DAILY [facility] Azithromycin 500 mg/ Dextrose 255 mls @ 250 mls/hr IV Q24 NAYELY Sodium Chloride () 250 mls @ 15 mls/hr IV .[id number] PRN PRN Reason: SALINE FLUSH Insulin Human Lispro (Humalog Kwikpen (Bkc)) 0 unit SC ACHS [facility]; Protocol Last Admin: 06/25/19 06:33 Dose: 1 u Documented by: Ketorolac Tromethamine (Toradol) 15 mg IV Q6H PRN PRN PRN Reason: pain Stop: 06/30/19 00:01 Last Admin: 06/25/19 06:33 Dose: 15 mg Documented by: Melatonin (Melatonin) 3 mg PO QHS PRN PRN PRN Reason: INSOMNIA Ondansetron HCl (Zofran) 4 mg IV Q8H PRN PRN PRN Reason: NAUSEA/VOMITING Last Admin: 06/25/19 04:22 Dose: 4 mg Documented by: Pioglitazone HCl (Actos) 15 mg PO DAILY NAYELY Sodium Chloride () 5 - 15 ml IV UD PRN PRN Reason: SALINE FLUSH Last Admin: 06/25/19 00:21 Dose: 10 ml Documented by: Medical Necessity - Tobacco Use Smoking Status: Former smoker Assessment/Plan All Active Problems (Last Reviewed 06/24/19 @ 22:44 by Baltazar Cole MD) Sepsis (Acute) Community acquired pneumonia (Acute) 1. Sepsis secondary to community-acquired pneumonia -Temperature has been improving and she is currently afebrile -The gas was unremarkable -Continue with Rocephin and azithromycin -Legionella and strep urine antigen were negative -Blood and urine cultures are pending 2. DM 2 -Is on Actos and metformin at home which we will hold -Continue with a sliding scale insulin and Accu-Cheks DVT: Lovenox Code Visit Inpatient E&M: 47182 Subs Hosp L2
[2019-06-25] MEDS: Enoxaparin 40 MG/0.4 ML Syringe SC (09:26)
[2019-06-25] MEDS: Pioglitazone Hydrochloride 15 MG Tablet PO (09:26)
--- NOTE | 2019-06-25 11:00 | CASEMGMT ---
RN SKINNY HAND BOX FOLDER CM to room to meet with patient for initial transition planning/care coordination assessment. RN SKINNY introduced self and role at [facility]. Pt voices understanding and consents to assessment at this time. Pt resting in bed in no distress at this time. Mother @ bedside. Pt agreeable to assessment while mother present. Pt is A/O at this time and answers all questions appropriately. Care providers, pharmacy, and demographics verified/updated at this time. PCP: Nate Specialists: Has an appt next to see Dr Rojas @ [facility]--urology Preferred Pharmacy: [facility] Insurance: [employer] Prescription Benefit: Yes Living Will/HPOA: States does not have LW or HCPOA . Interested in more information and would like to talk to ELENA. Nina PARKER, made aware. LNOK: Living Arrangements: Lives with and 3 daughters live with them. They live in one-story home w/2 steps to enter. States is independent @ home. able to assist if needed. Transportation: Pt states drives self and states no transportation concerns at this time. or mother will transfer pt home @ D/C. DME: States has a glucometer, that it works properly, and she has all needed supplies for it. Denies need for further DME at this time. HHC/SNF: No history of either. No needs identified. Pt wishes to return home and states has no concerns with going home at time of discharge. CM to follow for any discharge planning/needs. Pt voices no further concerns/needs at this time. Advised pt to ask for CM if any further questions/concerns/needs arise. Voices understanding. PLAN: Home w/family support and discharge plans in place. Christi GONSALEZ RN, CM
[2019-06-25] MEDS: Ceftriaxone 1 GM/50 ML BAG IV (11:06)
[2019-06-25] MEDS: Glucerna Shake 120 ML LIQUID PO ×2 (11:19→16:17)
--- NOTE | 2019-06-25 11:27 | CASEMGMT ---
Social Work Note SW received referral for advanced directives. SW met with pt and introduced self and role at [facility]. Pt is alert and orientated x3. Pt states she would like to complete HCPOA. Pt completed HCPOA but denied completed LW at this time. Original HCPOA provided to pt and copy placed on pt's chart. SW provided pt with social service rac card in the event she wishes to complete LW as an outpatient. Nina Reynolds CRISIS INTERVENTION SPECIALIST, [employer] RN
[2019-06-25 11:36] LABS: Bedside Glucose 161 mg/dL (70-110)
[2019-06-25] MEDS: Ibuprofen 400 MG Tablet PO (13:57)
--- NOTE | 2019-06-25 14:39 | CHAPLAIN ---
Type of Pastoral Visit _x__ Initial Visit ___ Follow-up Visit ___ On-call Visit ___ General Patient Visit ___ Spiritual Assessment ___ Family Conference ___ Bereavement ___ Rapid Response ___ Code Blue ___ Other (describe below) Pastoral Care Referral From _x__ Patient ___ Family ___ Nurse ___ Physician ___ Boat Hand ___ Contact Worker ___ Other (describe below) Sacrament/Intervention _x__ Active listening ___ Anointing ___ Yazdanism _x__ Bereavement ___ Communion ___ Adela exploration ___ _x__ Life review _x__ Prayer ___ Reconciliation ___ Sacrament of Sick _x__ Supportive presence ___ Wedding ___ Other (describe below) Pastoral Comments Patient is seeking spiritual support as she is ill but even moreso because she suffered a recent of a close relative; pt wanted to talk and express grief and is also concerned about how the grieving will impact her recovery
[2019-06-25 16:15] LABS: Bedside Glucose 178 mg/dL (70-110)
[2019-06-25 16:26] LABS: Bedside Glucose 158 mg/dL (70-110)
--- NOTE | 2019-06-25 21:28 | EKG12_ITS ---
Test Reason : CHEST PAIN Blood Pressure : / mmHG Vent. Rate : 110 BPM Atrial Rate : 110 BPM P-R Int : 126 ms QRS Dur : 084 ms QT Int : 318 ms P-R-T Axes : 042 -03 034 degrees QTc Int : 430 ms Sinus tachycardia Otherwise normal ECG When compared with ECG of 24-JUN-2019 18:38, MANUAL COMPARISON REQUIRED, DATA IS UNCONFIRMED Confirmed by JAM COLLINS ([id number]), editor news HOUSTON COTTER ([id number]) on 07/01/2019 1:33:37 PM Referred By: Baltazar Cole Confirmed By:JAM COLLINS
--- NOTE | 2019-06-25 21:35 | PN_ITS ---
Progress Note Letter for the patient for her temperature of 103.1. Tachycardia. Patient was examined at bedside. Patient noted to have tachycardia tachypnea a nd stuttering. Patient is being treated for sepsis second committee acquired pneumonia and is on ceftriaxone and azithromycin. S1-S2, No Murmur Gallop or Rub. Tachycardia Lungs Clear to Auscultate. Abdomen soft and nontender bowel sounds present Sepsis second committee acquired pneumonia We will broaden antibiotics with vancomycin and Zosyn. Will check MRSA nasal screen. CBC and lactic acid ordered.
[2019-06-25 22:10] LABS: Bedside Glucose 119 mg/dL (70-110)
[2019-06-25 22:22] LABS: Absolute Lymphocyte Count 0.73 X10^3/uL (0.83-4.51); Absolute Neutrophil Count 4.2 X10^3/uL (2.0-7.7); Basophil# 0.02 X10^3/uL; Basophil% 0.4 % (0-1); Hematocrit 32.9 % (37-47); Hemoglobin 11.1 g/dL (12.0-15.0); Lymphocyte # 0.73 X10^3/ul (4.0); Lymphocyte % 13.6 % (19-41); Mean Corp Hgb Conc 33.7 g/dL (32-36); Mean Corpuscular Hgb 30.9 pg (27.0-32.0); Mean Corpuscular Volume 91.6 fL (81-99); Mean Platelet Vol. 9.6 fl (6.2-12.0); Monocyte# 0.38 X10^3/uL; Monocyte% 7.1 % (0-10); NRBC Flagged by Analyzer 0 % (0-5); Neutrophil % 78.2 % (47-70); Platelet Count 159 K/mm3 (150-450); RBC Distribution Width CV 12.9 % (11.6-14.6); RBC Distribution Width SD 43.3 fl (35.1-43.9); Red Blood Count 3.59 M/mm3 (4.2-5.4); White Blood Count 5.4 K/mm3 (4.4-11.0)
[2019-06-25] MEDS: 0.9% NaCl IVPB Med Flush (250 mL) 15 ML IV ×2 (22:41→22:53)
[2019-06-25 22:49] LABS: Anion Gap 7 (5-15); BUN 7 mg/dL (7-18); BUN/Creat Ratio 8.9 RATIO (10-20); Calcium,Total 7.9 mg/dL (8.5-10.1); Chloride 105 mmol/L (98-107); Creatinine, Serum 0.78 mg/dL (0.55-1.02); EST Glomerular Filtration Rate 86 mL/min (>60); Est Glom Filt Rate - Afr Amer 104 mL/min (>60); Estimated Creatinine Clearance 84.55 ml/min; Glucose 137 mg/dL (74-106); Potassium 3.9 mmol/L (3.5-5.1); Sodium Level 136 mmol/L (136-145)
[2019-06-25 22:52] LABS: Lactic Acid 0.8 mmol/L (0.4-2.0)
[2019-06-26] VITALS (13 sets, daily range): BP systolic 105–147; BP diastolic 62–96; PULSE 82–108; RESP 16–18; TEMP 36.7–38.6; O2SAT 97–98
--- NOTE | 2019-06-26 00:12 | PCM.RX.CS ---
Consult Pharmacy has been consulted to manage selected antiobiotic: Vancomycin Type of Consult: New start Suspected Infection: Sepsis, Pneumonia Prior Doses of Antibiotics Received/Current Regimen: Medications Vancomycin HCl 1,750 mg/ (Sodium Chloride) 535 mls @ 250 mls/hr IV Q12H NAYELY Discontinued Medications Vancomycin HCl 2,000 mg/ (Dextrose) 540 mls @ 250 mls/hr IV X1 ONE Stop: 06/25/19 23:40 Last Admin: 06/25/19 22:56 Dose: 250 mls/hr Labs: Sodium 136 mmol/L (136-145) 06/25/19 22:05 Potassium 3.9 mmol/L (3.5-5.1) 06/25/19 22:05 Chloride 105 mmol/L (98-107) 06/25/19 22:05 Carbon Dioxide 24.0 mmol/L (21.0-32.0) 06/25/19 22:05 Anion Gap 7 (5-15) 06/25/19 22:05 BUN 7 mg/dL (7-18) 06/25/19 22:05 Creatinine 0.78 mg/dL (0.55-1.02) 06/25/19 22:05 Est GFR (MDRD) Af Amer 104 mL/min (>60) 06/25/19 22:05 Est GFR (MDRD) Non-Af 86 mL/min (>60) 06/25/19 22:05 BUN/Creatinine Ratio 8.9 RATIO (10-20) L 06/25/19 22:05 Glucose 137 mg/dL (74-106) H 06/25/19 22:05 Microbiology: Microbiology 06/24/19 19:45 Urine, Clean Catch Streptococcus pneumoniae Antigen (M - Final 06/24/19 19:45 Urine, Clean Catch Legionella Antigen - Final Weight used for dosin.4 kg Estimated Creatinine Clearance: 85 Goal Trough: 15-20 mcg/mL Pharmacy Plan for Drug Dosing: Pharmacy Service will continue to monitor and adjust dosing as required. Follow-Up Labs: Trough Vancomycin Labs to be done on [date and time ordered]: 06/27/19 @1030
--- NOTE | 2019-06-26 01:42 | NURSING ---
I was alerted by the certified pathology assistant jennifer that the patient was complaining about chest pain and generally feeling like something was wrong and she said she was struggling. Vitals and blood sugar was taken and physician informed. Pts vitals were triggering q 15 - 1 hr vitals due to reps of 26, HR of 115 and oral temp of 103.2. Physician assessed Pt and put in new orders (CBC, BMP, Lactic, blood cultures, MRSA swab, zosyn, vanco, EKG, respiratory panel). After medications pt's vitals have improved and she is feeling better.Last temp was 98.1. reps back down to 18 and HR was 101.
[2019-06-26 02:24] LABS: M R Staph aureus DNA By PCR Negative (Negative); Probe Check PASS; Specimen Processing Control PASS
[2019-06-26] MEDS: 0.9% NaCl Peripheral Flush Adult/Peds IV ×6 (03:31→21:53)
[2019-06-26] MEDS: Acetaminophen 325 MG Tablet 650 MG PO ×3 (03:39→16:55)
[2019-06-26] MEDS: Ketorolac 15 MG/ML Vial IV ×2 (06:43→14:34)
[2019-06-26 06:55] LABS: Bedside Glucose 137 mg/dL (70-110)
[2019-06-26] MEDS: Pioglitazone Hydrochloride 15 MG Tablet PO (09:32)
[2019-06-26] MEDS: Enoxaparin 40 MG/0.4 ML Syringe SC (09:32)
--- NOTE | 2019-06-26 10:59 | PN_ITS ---
Patient Problems: Active and Suspected Problems (Last Reviewed 06/24/19 @ 22:44 by Baltazar Cole MD) Sepsis (Acute) Community acquired pneumonia (Acute) Subjective: She feels washed out today, she did have a fever overnight and her antibiotics were broadened. No shortness of breath chest pain Vitals/I&O's: Vital Signs Temp Pulse Resp BP Pulse Ox 100.2 F H 91 16 115/71 97 06/26/19 09:00 06/26/19 09:00 06/26/19 09:00 06/26/19 09:00 06/26/19 09:00 Oxygen Delivery Method Room Air Weight: 230 lb 2.601 oz Body Mass Index (BMI) 38.2 Finger Stick Blood Glucose 119 Intake and Output for Last 24 Hours 06/24/19 06/25/19 06/26/19 23:59 23:59 23:59 Intake Total 3787.85 / 3787.85 1383.25 / 1783.25 1333.25 / 1333.25 Output Total 1825 / 2225 1500 / 1500 Balance 3787.85 / 3787.85 -441.75 / -441.75 -166.75 / -166.75 General: Alert, Oriented x3, Cooperative, No apparent distress HEENT: Atraumatic, PERRLA, EOMI, Normocephalic Oral: Moist Mucosa Neck: Supple, No JVD Lungs: Clear to auscultation, Normal air movement, No rhonchi, No wheeze, No rales Cardiovascular: Regular rate, Regular Rhythm, Normal S1, Normal S2, No murmurs Abdomen: Soft, Non Tender, Non-Distended, No Hepato-splenomegaly Extremities: No edema, Capillary Refill Less than 3 Seconds Skin: No rashes, No breakdown Neurological: Neuro grossly intact, Sensory exam intact to light touch and pain Psych/Mental Status: Normal Affect, Appropriate Microbiology Past 72 Hours 06/24/19 19:45 Urine, Clean Catch Urine Culture - Final Mixed Gram Positive Organisms 06/25/19 21:45 Mucosa - Nasopharyngeal Respiratory Panel (PCR) - Final 06/24/19 19:45 Urine, Clean Catch Streptococcus pneumoniae Antigen (M - Final 06/24/19 19:45 Urine, Clean Catch Legionella Antigen - Final Laboratory Results 06/25/19 06:31: POC Glucose 178 H 06/25/19 11:10: POC Glucose 161 H 06/25/19 16:15: POC Glucose 158 H 06/25/19 21:23: POC Glucose 119 H 06/25/19 22:05: WBC 5.4, RBC 3.59 L, Hgb 11.1 L, Hct 32.9 L, MCV 91.6, MCH 30.9, MCHC 33.7, RDW Std Deviation 43.3, RDW Coeff of Noemy 12.9, Plt Count 159, MPV 9.6, Immature Gran % (Auto) 0.700, Neut % (Auto) 78.2 H, Lymph % (Auto) 13.6 L, [place] % (Auto) 7.1, Eos % (Auto) 0.0, Baso % (Auto) 0.4, Absolute Neuts (auto) 4.2, Absolute Lymphs (auto) 0.73 L, Nucleated RBC % 0 06/25/19 22:05: Lactic Acid 0.8 06/25/19 22:05: Sodium 136, Potassium 3.9, Chloride 105, Carbon Dioxide 24.0, Anion Gap 7, BUN 7, Creatinine 0.78, Estim Creat Clear Calc 84.55, Est GFR (MDRD) Af Amer 104, Est GFR (MDRD) Non-Af 86, BUN/Creatinine Ratio 8.9 L, Glucose 137 H, Calcium 7.9 L 06/26/19 00:30: MRSA (PCR) Negative 06/26/19 06:49: POC Glucose 137 H Current Medications Acetaminophen (Tylenol) 650 mg PO Q6H PRN PRN PRN Reason: Mild Pain (1-3)/Temp > 100.7 F Last Admin: 06/26/19 09:39 Dose: 650 mg Documented by: Albuterol Sulfate (Ventolin Aerosols) 2.5 mg INHALATION Q2H PRN PRN PRN Reason: Shortness of Breath/Wheezing Last Admin: 06/25/19 15:00 Dose: 2.5 mg Documented by: Dextrose (D50w Syringe) 0 gm IV X1 PRN; Protocol PRN Reason: Hypoglycemia Enoxaparin Sodium (Lovenox) 40 mg SC DAILY@1000 NAYELY Last Admin: 06/26/19 09:32 Dose: 40 mg Documented by: Glucagon () 1 mg IM .X1 PRN PRN Reason: Hypoglycemia Sodium Chloride () 250 mls @ 15 mls/hr IV .[id number] PRN PRN Reason: SALINE FLUSH Last Infusion: 06/26/19 10:10 Dose: 15 mls/hr Documented by: Piperacillin Sod/Tazobactam (Sod 3.375 gm/ Sodium Chloride) 50 mls @ 12.5 mls/hr IV Q8 NAYELY Last Infusion: 06/26/19 10:10 Dose: Infused Documented by: Ibuprofen (Motrin) 400 mg PO Q6H PRN PRN PRN Reason: FEVER Last Admin: 06/25/19 13:57 Dose: 400 mg Documented by: Insulin Human Lispro (Humalog Kwikpen (Bkc)) 0 unit SC ACHS [facility]; Protocol Last Admin: 06/26/19 06:50 Dose: Not Given Documented by: Ketorolac Tromethamine (Toradol) 15 mg IV Q6H PRN PRN PRN Reason: pain Stop: 06/30/19 00:01 Last Admin: 06/26/19 06:43 Dose: 15 mg Documented by: Melatonin (Melatonin) 3 mg PO QHS PRN PRN PRN Reason: INSOMNIA Nutritional Formula (Lactose Free) (Glucerna Shake) 120 ml PO TIDCM [facility] Last Admin: 06/26/19 09:32 Dose: Not Given Documented by: Ondansetron HCl (Zofran) 4 mg IV Q8H PRN PRN PRN Reason: NAUSEA/VOMITING Last Admin: 06/25/19 21:35 Dose: 4 mg Documented by: Pioglitazone HCl (Actos) 15 mg PO DAILY [facility] Last Admin: 06/26/19 09:32 Dose: 15 mg Documented by: Sodium Chloride () 5 - 15 ml IV UD PRN PRN Reason: SALINE FLUSH Last Admin: 06/26/19 06:11 Dose: 10 ml Documented by: Medical Necessity - Tobacco Use Smoking Status: Former smoker Assessment/Plan All Active Problems (Last Reviewed 06/24/19 @ 22:44 by Baltazar Cole MD) Sepsis (Acute) Community acquired pneumonia (Acute) 1. Sepsis secondary to community-acquired pneumonia -She spiked a fever overnight, was broadened to Zosyn and vancomycin however her MRSA screen came back negative therefore the vancomycin was discontinued -Lactic acid was unremarkable -Legionella and strep urine antigen were negative -Blood cultures pending and urine cultures are showing a contaminant 2. DM 2 -Is on Actos and metformin at home which we will hold -Continue with a sliding scale insulin and Accu-Cheks DVT: Lovenox Code Visit Inpatient E&M: 81207 Subs Hosp L2
[2019-06-26] MEDS: Insulin Lispro 100 UNIT/ML INSULN.PEN SC (11:25)
[2019-06-26] MEDS: Glucerna Shake 120 ML LIQUID PO (11:27)
[2019-06-26 11:30] LABS: Bedside Glucose 162 mg/dL (70-110)
[2019-06-26] MEDS: Albuterol 2.5 MG/3 ML VIAL.NEB. INHALATION (15:34)
--- NOTE | 2019-06-26 16:23 | CHAPLAIN ---
Type of Pastoral Visit ___ Initial Visit _x__ Follow-up Visit ___ On-call Visit ___ General Patient Visit ___ Spiritual Assessment ___ Family Conference ___ Bereavement ___ Rapid Response ___ Code Blue ___ Other (describe below) Pastoral Care Referral From _x__ Patient ___ Family ___ Nurse ___ Physician ___ Drug Department Worker ___ Cartridge Maker ___ Other (describe below) Sacrament/Intervention ___ Active listening ___ Anointing ___ Taoism ___ Bereavement ___ Communion ___ Adela exploration ___ ___ Life review _x__ Prayer ___ Reconciliation ___ Sacrament of Sick _x__ Supportive presence ___ Wedding ___ Other (describe below) Pastoral Comments
[2019-06-26 16:55] LABS: Bedside Glucose 121 mg/dL (70-110)
[2019-06-26 22:11] LABS: Bedside Glucose 129 mg/dL (70-110)
[2019-06-27] VITALS (8 sets, daily range): BP systolic 120–133; BP diastolic 79–86; PULSE 72–89; RESP 18; TEMP 36.6–37.3; O2SAT 93–98
[2019-06-27] MEDS: Acetaminophen 325 MG Tablet 650 MG PO (02:35)
[2019-06-27 06:50] LABS: Bedside Glucose 117 mg/dL (70-110)
[2019-06-27] MEDS: Ibuprofen 400 MG Tablet PO (08:03)
--- NOTE | 2019-06-27 08:27 | PCM.DC ---
- Discharge Diagnoses Current Active Problems: Current Active and Chronic Problems (Last Reviewed 06/24/19 @ 22:44 by Baltazar Cole MD) Sepsis (Acute) Community acquired pneumonia (Acute) You will use the following diet at home:: Calorie/Carbohydrate Controlled (specify 1200, 1400, etc) - 1600 Your food should be the consistency of: Regular Your liquids should be the consistency of: Regular/Thin Discharge Activity: Return to Normal Activity Call your doctor if you observe: Fever of 101 or Higher, Shortness of breath, Dizziness, Fainting spells, Swelling in the ankles, Chest pain, Increased palpitations (irregular heartbeat) Allergies/Adverse Reactions: Allergies No Known Allergies Allergy (Verified 06/24/19 17:36) Medications to take at Discharge cholecalciferol (vitamin D3) 1,000 unit capsule 1,000 unit PO DAILY 06/02/19 metformin 1,000 mg tablet 1,000 mg PO BID 06/02/19 pioglitazone 15 mg tablet 15 mg PO DAILY 06/02/19 Multivitamin/Iron/Folic Acid [Centrum Women Tablet] 1 tab PO DAILY 06/24/19 Vitamin A 8,000 unit PO DAILY 06/24/19 Amoxicillin/Potassium Clav [Augmentin 875-125 Tablet] 1 ea PO BID #10 tab 06/27/19 The following prescriptions were given: Amoxicillin/Potassium Clav [Augmentin 875-125 Tablet] 1 ea PO BID #10 tab Transmission Status: Pending to [facility] Primary Care Physician: Naseem Sullivan MD [Primary Care Provider] - Please follow up with your Primary Care Physician in: 3-5 days Test Results: Test results from this visit will be discussed in further detail at your follow-up appointment, if applicable.
--- NOTE | 2019-06-27 08:30 | PCM.DC.SUM ---
Discharge Date and Diagnosis - Problem List Patient Problems: Active and Suspected Problems (Last Reviewed 06/24/19 @ 22:44 by Baltazar Cole MD) Sepsis (Acute) Community acquired pneumonia (Acute) Date of Admission: 06/24/19 Date of Discharge: 06/27/19 - Primary Discharge Diagnosis Active and Suspected Problems (Last Reviewed 06/24/19 @ 22:44 by Baltazar Cole MD) Sepsis (Acute) Community acquired pneumonia (Acute) Hospital Course and Treatment Imaging Results: CXR: IMPRESSION: Right upper lobe airspace disease. Recommend follow-up to resolution. Consults: None Operations: None Procedures: None Summary of Care Provided: Per HPI: The patient is a 44 year old F with a significant history of diabetes mellitus; and adrenal adenoma who presents emergency department with a 2-day history of progressively worsening fever. She reports a fever of around 103. Associated if her symptoms is severe headache; chest heaviness; chills; nausea; some mild shortness of breath and some occasional cough. Importantly her 5-year-old's child was recently diagnosed with pneumonia. The emergency department patient was found to have a temperature of 102.8; and tachycardia. Chest x-ray was remarkable for right upper lobe airspace disease. Hospital Course: 1. Sepsis secondary to community-acquired [id number] female who presents with 2-day history of progressively worsening fever. She had chest heaviness chills nausea as well as cough. Her 5-year-old was diagnosed with pneumonia recently. She was initially started on Rocephin and azithromycin, her Legionella and strep antigens came back negative. Sputum cultures came back negative and her urine culture was unremarkable and her blood cultures were negative as well. Her respiratory panel was also unremarkable. However her care was complicated by the fact that she spiked a fever overnight the day after admission, and therefore she was broadened on Zosyn and vancomycin. She had a MRSA swab done that was negative, therefore the vancomycin was discontinued she was continued just on Zosyn. She has so far been 12 hours without a fever and she is feeling great today she says and she would like to go home if possible. I discussed with her that she should at least get a second dose of Zosyn while she is here so we can watch for the rest of the day and if she still remains afebrile, discharge later this afternoon. We will put her on Augmentin for 5 more days to complete 7 days of antibiotics for community-acquired pneumonia. She understands the risks of going home and I discussed with her that if she has any worsening of her symptoms with fevers chills and coughing, she is to return to the ER. 2. Her other medical diagnoses were evaluated and her home medications were continued where appropriate Patient Problems: Active and Suspected Problems (Last Reviewed 06/24/19 @ 22:44 by Baltazar Cole MD) Sepsis (Acute) Community acquired pneumonia (Acute) Objective: General: Alert, Oriented x3, Cooperative, No apparent distress HEENT: Atraumatic, PERRLA, EOMI, Normocephalic Oral: Moist Mucosa Neck: Supple, No JVD Lungs: Clear to auscultation, Normal air movement, No rhonchi, No wheeze, No rales Cardiovascular: Regular rate, Regular Rhythm, Normal S1, Normal S2, No murmurs Abdomen: Soft, Non Tender, Non-Distended, No Hepato-splenomegaly Extremities: No edema, Capillary Refill Less than 3 Seconds Skin: No rashes, No breakdown Neurological: Neuro grossly intact, Sensory exam intact to light touch and pain Psych/Mental Status: Normal Affect, Appropriate - Physical Exam Vital Signs Temp Pulse Resp BP Pulse Ox 98.4 F 72 18 125/84 H 95 06/27/19 07:47 06/27/19 07:47 06/27/19 07:47 06/27/19 07:47 06/27/19 07:47 Oxygen Delivery Method Room Air Weight: 230 lb 2.601 oz Body Mass Index (BMI) 38.2 Finger Stick Blood Glucose 119 Intake and Output for Last 24 Hours 06/25/19 06/26/19 06/27/19 23:59 23:59 23:59 Intake Total 1383.25 / 1783.25 1700.00 / 1700.00 204.5 / 204.5 Output Total 1825 / 2225 3300 / 3300 Balance -441.75 / -441.75 -1600.00 / -1600.00 204.5 / 204.5 Microbiology Past 72 Hours 06/24/19 19:45 Urine Culture - Final Urine, Clean Catch Mixed Gram Positive Organisms 06/25/19 21:45 Respiratory Panel (PCR) - Final Mucosa - Nasopharyngeal 06/24/19 19:45 Streptococcus pneumoniae Antigen (M - Final Urine, Clean Catch 06/24/19 19:45 Legionella Antigen - Final Urine, Clean Catch POC Glucose 06/27/19 06/26/19 06/26/19 06:46 21:49 16:43 POC Glucose 117 H 129 H 121 H 06/26/19 11:23 POC Glucose 162 H Discharge Activity: Return to Normal Activity Call your doctor if you observe: Fever of 101 or Higher, Shortness of breath, Dizziness, Fainting spells, Swelling in the ankles, Chest pain, Increased palpitations (irregular heartbeat) Home Medications: Medications to take at Discharge cholecalciferol (vitamin D3) 1,000 unit capsule 1,000 unit PO DAILY 06/02/19 metformin 1,000 mg tablet 1,000 mg PO BID 06/02/19 pioglitazone 15 mg tablet 15 mg PO DAILY 06/02/19 Multivitamin/Iron/Folic Acid [Centrum Women Tablet] 1 tab PO DAILY 06/24/19 Vitamin A 8,000 unit PO DAILY 06/24/19 Amoxicillin/Potassium Clav [Augmentin 875-125 Tablet] 1 ea PO BID #10 tab 06/27/19 Following Prescrptions Were Given to Patient: Amoxicillin/Potassium Clav [Augmentin 875-125 Tablet] 1 ea PO BID #10 tab Transmission Status: Pending to [facility] Primary Care Physician: Naseem Sullivan MD [Primary Care Provider] - Please follow up with your Primary Care Physician in: 3-5 days Disposition: Home Minutes spent on discharge:: 35 Patient Condition:: Good Medical Necessity - Tobacco Use Smoking Status: Former smoker Meaningful Use Info Meaningful Use Diagnoses (Choose all that apply): None applicable Code Visit Inpatient E&M: 59302 Disch Hosp
[2019-06-27 11:40] LABS: Bedside Glucose 107 mg/dL (70-110)
[2019-06-27 11:48] LABS: Vancomycin, Trough Level < 0.8 ug/mL (5.0-15.0)
--- NOTE | 2019-06-30 15:24 | CASEMGMT ---
JI BABB Discharge Follow-up Phone Call: KAPIL: [employer]: 3 Call Date: 06/30/19 Discharge Date: 06/27/19 Time of Call: 1520 Duration: 4 min Admitting Diagnosis: Sepsis secondary to CAP RN SKINNY completed follow-up phone call after recent hospitalization. Patient states she is doing well just still tired. Patient denied questions or concerns regarding discharge instructions. Patient was able to fill prescriptions without any issues. Patient has follow-up appt with PCP for 07/02/19. Patient denies further questions or needs at this time.
== END 2019-06-27 15:31 | disposition home or self-care (01) | DRG 871 ==
LOC: ED 18:24 → MS3 20:28
PROVIDERS: Admitting Provider Hospitalist; Emergency Provider Emergency Medicine; Family Provider Family Medicine; PCP Family Medicine; Referring Provider Hospitalist; Visit Provider Family Medicine
DX: A41.9 Sepsis, unspecified organism (principal); J18.9 Pneumonia, unspecified organism; E11.9 Type 2 diabetes mellitus without complications; E66.9 Obesity, unspecified; Z68.38 Body mass index [BMI] 38.0-38.9, adult; Z79.84 Long term (current) use of oral hypoglycemic drugs; Z87.891 Personal history of nicotine dependence
CPT/HCPCS: 36415; 71045; 80048; 80053; 80202; 81001; 82962; 83605; 84484; 84703; 85025; 85610; 85730; 87040; 87070; 87086; 87088; 87205; 87449; 87633; 87641; 93005; 94640; 94667; 99285; J7030; J7040; J7050; A4216; J0696; J2405

== ENCOUNTER 2019-08-19 08:12 | Day surgery (SDC) | payer OTHER, SELFPAY ==
[2019-06-24 20:32] VITALS: BMI 38.2
--- NOTE | 2019-08-11 08:19 | HP_ITS ---
Intake Vital Signs 08/11/19 Blood Pressure 130/86 H 08/11/19 Blood Pressure Location Rt brachial 08/11/19 Blood Pressure Position Sitting 08/11/19 Respiratory Rate 18 08/11/19 Pulse Rate 76 08/11/19 Pulse Ox 100 Intake Visit Reasons: 2 mo FU Incisional Hernia Chief Complaint: discuss surgery Director Of Programming Required: No Is patient in pain?: No Allergies No Known Allergies Allergy (Verified 08/11/19 07:35) Medications cholecalciferol (vitamin D3) 1,000 unit capsule 1,000 unit PO DAILY 06/02/19 [History Confirmed 08/11/19] metformin 1,000 mg tablet 1,000 mg PO BID 06/02/19 [History Confirmed 08/11/19] pioglitazone 15 mg tablet 15 mg PO DAILY 06/02/19 [History Confirmed 08/11/19] Multivitamin/Iron/Folic Acid [Centrum Women Tablet] 1 tab PO DAILY 06/24/19 [History Confirmed 08/11/19] Vitamin A 8,000 unit PO DAILY 06/24/19 [History Confirmed 08/11/19] Is last menstrual period known: No Post menopausal: No Patient : No PFSH Medical History Hernia (Acute) Abdominal pain (Acute) Back pain (Acute) Depression (Acute) Diabetes (Acute) GERD (gastroesophageal reflux disease) (Acute) Surgical History History of section (Acute) History of hernia repair (Acute) History of laparoscopic cholecystectomy (Acute) History of tonsillectomy and adenoidectomy (Acute) Family History Aunt Cancer ovarian Grandfather Heart disease Social History (Updated 08/11/19 @ 08:19 by Derek Cavazos MD) Smoking Status: Former smoker alcohol intake: never substance use type: does not use HPI HPI HPI: MAYUR RAMOS, is a 44 F who presents to the office today for HPI HPI Surgical H&P: Yes HPI: MAYUR RAMOS, is a 44 F who presents to the office today for Evaluation of an incisional hernia at her umbilicus. I originally saw her back several months ago when she was complaining of some left lower quadrant abdominal pain which I thought was musculoskeletal secondary to a inguinal hernia surgery that she had many years ago. In addition she had a adrenal adenoma for which she was following up with urology and has a plan for that on a yearly basis. We gave her some stretching exercises which helped immensely with her discomfort in the left lower quadrant. However now she is noticing some discomfort just below the umbilicus when she has her jeans on and it is been increasingly unpleasant for her. She has had no change in her bowel or bladder habits. Her CAT scan that was obtained the last time we saw each other did show a incisional hernia below the umbilicus. ROS General General: Yes fatigue; no weight change, appetite, colon cancer, breast cancer or weakness HEENT HEENT: No difficulty swallowing, eye injury, eye surgery, swollen glands or hoarseness Endo Endocrine: Yes diabetes mellitus; no thyroid disease, thyroid cancer, Hair loss, heat intolerance or cold intolerance Musc Musculoskeletal: Yes back problems and rheumatoid arthritis; no arthritis, gout or joint pain Cardio Cardiovascular: No murmur, pacemaker, heart disease, atrial fibrillation, high blood pressure, heart attack, heart stent, palpitations, shortness of breat with exertion or chest pain Psych Psychiatric: Yes depression; no anxiety or hearing voices Resp Respiratory: No shortness of breath, No sleep apnea, No cough, No COPD, No asthma, No emphysema, No wheezing Gastro Gastrointestinal: Yes abdominal pain, Yes nausea or vomiting, Yes diarrhea, Yes constipation, No blood in stool, Yes acid reflux, No hemorrhoids, No ulcers, No gallbladder problem, No black,tarry stools Neuro Neurologic: No weakness Exam Const General: no acute distress, well developed, well hydrated Orientation: oriented to person, oriented to place, oriented to time [facility] Head: normocephalic, atraumatic Ears: external ears normal Mouth: moist mucous membranes Eyes Sclera: sclerae normal Pupils: normal by confrontation Neck Neck: no lymphadenopathy noted Neck mass: No Thyroid: thyroid normal, symmetrical Chest Chest palpation & inspection: normal inspection of the chest Resp Effort & Inspection: normal respiratory effort Auscultation: clear to auscultation bilaterally Percussion: percussion normal Cardio Rate: regular rate Rhythm: regular rhythm Heart Sounds: no murmurs GI Palpation: soft, no hepatosplenomegaly, no masses, tender Rectal Exam: other Other: A Hernia Just below her umbilicus is palpated on exam. Rectal exam deferred. Extrem General: normal to inspection, no clubbing, cyanosis or edema Assessment & Plan Problems 1. Incisional hernia, without obstruction or gangrene K43.2; K43.91 Plan My plan is to perform And incisional hernia repair with mesh. The planned surgical procedure was discussed extensively with the patient. The risks, benefits, anticipated outcomes and possible complication were mentioned. The patient understands that all hernia repair surgery has a chance of recurrence and/or chronic post-operative pain. My staff has also explained the procedure in understandable terms and the patient was given the option to take printed material concerning the planned procedure. The patient had the opportunity to ask questions concerning the planned procedure. The patient freely consents to the planned procedure. Coding Level of Care Code Off vis,est,level 3 Diagnoses Incisional hernia, without obstruction or gangrene K43.2; K43.91 ??Obstruction and gangrene presence: without obstruction or gangrene 08/11/19 0819 <Electronically signed by Derek rivera MD> Date _ Derek Cavazos MD I have re-examined the patient. There are no clinical changes since date of exam.
[2019-08-19] VITALS (7 sets, daily range): BP systolic 115–129; BP diastolic 71–85; PULSE 72–99; RESP 16–18; TEMP 36.3–36.9; O2SAT 92–100; BMI 38.5
[2019-08-19] MEDS: Lactated Ringers 1,000 ML 100 ML IV (08:53)
[2019-08-19 10:01] LABS: Bedside Glucose 132 mg/dL (70-110)
[2019-08-19] MEDS: Cefazolin 2 GM in 0.9% Normal Saline 100 ML IV (10:51)
[2019-08-19] MEDS: Bupivacaine Mpf 0.5% 30 ML VIAL (11:24)
[2019-08-19] MEDS: BUPIVACAINE LIPOSOME/PF 20 ML VIAL OPERA.SITE (11:24)
--- NOTE | 2019-08-19 11:25 | PCM.OPRPT ---
Problem List (1) Incisional hernia Status: Acute Qualifiers: Obstruction and gangrene presence: without obstruction or gangrene Qualified Code(s): K43.2 - Incisional hernia without obstruction or gangrene; K43.91 - Incisional hernia, without obstruction or gangrene Report of Operation Date of Procedure: 08/19/19 Pre-Operative Diagnosis: Incisional hernia Post-Operative Diagnosis: Same Surgery/Procedure Performed:: Incisional herniorrhaphy with mesh. Ventral X ST hernia patch reference #[id number] lot number [id number] Anesthesiologist: Naseem Greenfield Estimated Blood Loss (mL): < 25 cc Fluids Replaced: 800 cc lr Description of Procedure: Patient was brought into the operating room. Placed in the supine position. Under excellent general trach intubation the abdomen was sterilely prepped draped in usual fashion. Local was injected previous midline incision below the umbilicus. This was opened up. Dissection was carried down to the fascia and the hernia defect. I dissected the hernia free. I placed it back into its preperitoneal space. I dissected free of hernia sac and the preperitoneal space taking out one #1 Nurolon suture in the process. I then fashioned a small ventral X hernia patch into the wound. Circumferentially tacked it to the fascia with #1 Nurolon's. I injected Exparel. Subcu was then brought together with 2-0 Vicryl. Deep dermis with 3-0 Vicryl then a running 4-0 Monocryl on the skin Dermabond was applied sterile dressings were applied and the patient tolerated the procedure well. - Admit VTE Documentation VTE Present on Admission: No VTE Mechan Device Prophylaxis: SCD's VTE Pharm Prophylaxis ordered?: No Reason prophylaxis not ordered:: Treatment Not Indicated
--- NOTE | 2019-08-19 11:28 | PCM.DC.HER ---
Discharge Diet: Light diet - advance as tolerated Discharge Activity: Return to Normal Activity, May Drive - when you are no longer taking narcotic pain medications., May Shower - with the bandage in place 1-2 days after surgery. Lifting Restrictions: 20 pounds for 8 weeks. Additional Activity Instructions:: Climbing stairs is fine, walking is encouraged. Sitting in bed may be uncomfortable. Sitting up using your lateral muscles (sitting up sideways) is usually more comfortable. Do not drive, work heavy equipment of sign legal documents for 24 hours. If your hernia repair was an ingunial repair, you may have scrotal swelling, an ice pack and/or athletic support can provide more comfort. Pain medications may cause nausea, you should typically eat light foods as you take your pain medications. Pain medications may also cause constipation. If you have difficulty with this, discuss with your doctor. Call your doctor if your incision/area has: Continuous Slow Oozing, Sudden Increased Bleeding, Increased Pain/ Swelling, Increased Redness, Foul Smelling Discharge Call your doctor if you observe: Fever of 101 or Higher Suture Line Care: Avoid Pulling/Pushing, Avoid Pinching/Bending Additional Dressing/Incision Instructions:: Leave the operative bandage on for 2-3 days. When you remove the bandage, leave the steri-strips on place until your follow up appointment or they fall off. Allergies/Adverse Reactions: Allergies No Known Allergies Allergy (Verified 08/15/19 10:05) Medications to take at Discharge cholecalciferol (vitamin D3) 1,000 unit capsule 1,000 unit PO DAILY 06/02/19 metformin 1,000 mg tablet 1,000 mg PO BID 06/02/19 pioglitazone 15 mg tablet 15 mg PO DAILY 06/02/19 Multivitamin/Iron/Folic Acid [Centrum Women Tablet] 1 tab PO DAILY 06/24/19 Vitamin A 8,000 unit PO DAILY 06/24/19 Cinnamon Bark [Cinnamon] 500 mg PO DAILY 08/15/19 Oxycodone HCl/Acetaminophen [Percocet 5/325] 1 - 2 tablet PO Q4H PRN PRN 7 Days #30 tablet 08/19/19 The following prescriptions were given: Oxycodone HCl/Acetaminophen [Percocet 5/325] 1 - 2 tablet PO Q4H PRN PRN 7 Days #30 tablet PRN Reason: Pain Transmission Status: Sent to [id number] Primary Care Physician: Naseem Sullivan MD [Primary Care Provider] - Test Results: Test results from this visit will be discussed in further detail at your follow-up appointment, if applicable. Please Follow Up With: Derek Cavazos MD - [phone] When: Plan to have a follow up appointment in 7 days. Call to schedule.
[2019-08-19] MEDS: oxyCODONE 5 MG Tablet 10 MG PO (13:17)
[2019-08-19] MEDS: Acetaminophen 325 MG Tablet 650 MG PO (13:17)
== END 2019-08-19 14:08 | disposition home or self-care (01) ==
LOC: SDC 08:13 → AC 08:18
PROVIDERS: Family Provider Family Medicine; PCP Family Medicine; Referring Provider Surgery; Visit Provider Surgery
PROC: (CPT 49560; principal; 2019-08-19 10:50)
DX: K43.2 Incisional hernia without obstruction or gangrene (principal); E11.9 Type 2 diabetes mellitus without complications; Z79.84 Long term (current) use of oral hypoglycemic drugs; Z87.891 Personal history of nicotine dependence
CPT/HCPCS: 00832; 49560; 49568; 82962; J7120; C1781; J2405

== ENCOUNTER 2020-12-12 10:17 | Emergency (ER) | payer OTHER, SELFPAY ==
[2019-08-19 08:41] VITALS: BMI 38.5
[2020-12-12 10:18] VITALS: BP 150/95; PULSE 91; RESP 15; TEMP 36.2; O2SAT 97; BMI 37.4
--- NOTE | 2020-12-12 10:31 | EKG12_ITS ---
Test Reason : Blood Pressure : / mmHG Vent. Rate : 078 BPM Atrial Rate : 078 BPM P-R Int : 148 ms QRS Dur : 084 ms QT Int : 382 ms P-R-T Axes : 039 -11 023 degrees QTc Int : 435 ms Normal sinus rhythm Normal ECG Confirmed by PREMA BRYAN, TANA ([id number]), scientific publications editor VALE LOPEZ ([id number]) on 12/14/2020 9:01:07 AM Referred By: CAESAR Confirmed By:TANA LLOYD MD
--- NOTE | 2020-12-12 10:32 | ED.DCSUM_ITS ---
- ER Visit Summary Date of Service: 12/12/20 Chief Complaint: Atraumatic left calf pain History of Present Illness: The patient is a 45 F history of diabetes and high cholesterol. Patient states that today around 430 this morning she had left calf pain. She denies any falls or injury. She is never had a DVT or PE. She denies any current chest pain or shortness of breath but she has had intermittent atypical nonexertional chest pain the last couple weeks. So normally starts in her left shoulder and radiates towards her chest. She denies any hemoptysis. There is no family history of clotting disorder. She is on no hormone replacement therapy or control pills. She has no cardiac history. She has had no recent travel, surgery or immobilization. She states she has been laying around more the last several days since her last Covid vaccine on Sunday. Physical Examination: Well-appearing middle-aged female. No acute distress. Vital signs are stable and afebrile. Pulse ox 97% on room air no signs hypoxia. HEENT exam unremarkable. Neck nontender no lymphadenopathy. No JVD. Lungs clear to auscultation bilaterally. Heart regular rate and rhythm rate about 90 no murmur. Chest wall nontender. Abdomen soft nontender normal bowel sounds no peritoneal signs. Patient is moving all 4 extremities. Neurovascular intact. Equal symmetrical communication center coordinator strength. Equal symmetrical radial pulses. Both lower extremities are unremarkable. Her left calf is nontender. There is no cord. No edema. She is a strong DP pulse. Negative Homans' sign. Dorsi plantarflexion intact. Neurologically she is awake alert with no focal motor deficits. Test Results: EKG shows a normal sinus rhythm rate of 78 with no acute signs of OK nor ischemia. No acute abnormalities. Portable one view chest x-ray interpreted by myself shows no acute abnormality. Normal cardiac silhouette mediastinum. Normal lung harding. No infiltrate. Normal aorta. CBC normal white count of 6 hemoglobin 13. Chemistries normal normal creatinine and gap. Troponin normal. D-dimer normal. Noninvasive study left lower extremity read by the decontamination technician was negative. No DVT. Repeat exam patient is doing well. She and I went over all of her test results. She will be discharged home. Emergency Department Course and Treatment: Patient with atraumatic left calf pain will obtain a noninvasive study to rule out DVT. Clinically she has well no risk factors. There is also no family history. She is also had atypical noncardiac sounding chest pain that is nonexertional. She will undergo cardiac work-up. She will receive p.o. aspirin. Treatment Plan: Tylenol and/or Motrin for pain. Follow-up with your doctor if not improving. Return if worse. Disposition: discharge Impression: Acute left calf pain of uncertain etiology Atypical chest pain of uncertain etiology History of diabetes and high cholesterol This note was generated with [employer] dictation software. It may contain incorrect words, spelling, and punctuation that were not noted in review of the chart prior to signing ED Disposition - Plan for ED Patient: Referrals: Naseem Sullivan MD [Primary Care Provider] -
--- NOTE | 2020-12-12 10:32 | VDLE_ITS ---
Reason For Study: Left calf pain Procedure LEFT This is a venous duplex using B-mode, color GSV is normal. flow and spectral Doppler. CFV is compressible, spontaneous, phasic, Exam performed portable in ED. competent, and demonstrates normal A preliminary report was called and/or faxed augmentation. to ED. FV is compressible, spontaneous, phasic, competent and demonstrates normal augmentation. POP V is compressible, spontaneous, phasic, competent and demonstrates normal augmentation. T/P Trunk is compressible. PTV is compressible. LT PerV is compressible. Interpretation Summary There is no evidence of left lower extremity deep vein thrombosis. Left great saphenous vein appears patent and compressible segmentally. Ordering Physician: Bello Galvez Referring Physician: Naseem Sullivan MD Performed By: Nina Escalante RVT
[2020-12-12 10:37] VITALS: O2SAT 98
[2020-12-12] MEDS: Aspirin 81 MG TAB.CHEW 324 MG PO (10:50)
[2020-12-12 10:55] LABS: Absolute Lymphocyte Count 2.14 X10^3/uL (0.83-4.51); Absolute Neutrophil Count 4.1 X10^3/uL (2.0-7.7); Basophil# 0.03 X10^3/uL; Basophil% 0.4 % (0-1); Eosinophil# 0.14 X10^3/uL; Hematocrit 39.8 % (37-47); Hemoglobin 13.6 g/dL (12.0-15.0); Lymphocyte # 2.14 X10^3/ul (4.0); Lymphocyte % 31.1 % (19-41); Mean Corp Hgb Conc 34.2 g/dL (32-36); Mean Corpuscular Hgb 30.8 pg (27.0-32.0); Mean Corpuscular Volume 90.2 fL (81-99); Mean Platelet Vol. 9.7 fl (6.2-12.0); Monocyte# 0.42 X10^3/uL; Monocyte% 6.1 % (0-10); NRBC Flagged by Analyzer 0 % (0-5); Neutrophil # 4.12 X10^3/uL (2.7-7.7); Neutrophil % 60.1 % (47-70); Platelet Count 242 K/mm3 (150-450); RBC Distribution Width CV 12.9 % (11.6-14.6); RBC Distribution Width SD 42.6 fl (35.1-43.9); Red Blood Count 4.41 M/mm3 (4.2-5.4); White Blood Count 6.9 K/mm3 (4.4-11.0)
--- NOTE | 2020-12-12 10:55 | RAD_ITS ---
STUDY: X-RAY CHEST REASON FOR EXAM: Female, 45 years old. chest pain, leg pain TECHNIQUE: Single AP portable view of the chest. COMPARISON: 06/24/2019 FINDINGS: The lungs are clear and expanded. There is no demonstrated pleural abnormality. Normal size heart. Normal mediastinum and caio. Normal visualized pulmonary arteries. Normal visualized aortic arch and descending thoracic aorta. Normal visualized thoracic spine. Normal visualized ribs, clavicles, and shoulders. There is no demonstrated abnormality of the visualized soft tissue structures of the upper abdomen. RAD/Chest 1 View (Portable) IMPRESSION: Normal x-ray examination of the chest. Electronically Signed: Scotty Turk MD at 11:38 EDT Tel , Service support ,
[2020-12-12 11:13] LABS: Anion Gap 7 (5-15); BUN 13 mg/dL (7-18); BUN/Creat Ratio 14.1 RATIO (10-20); Chloride 100 mmol/L (98-107); Creatinine, Serum 0.92 mg/dL (0.55-1.02); EST Glomerular Filtration Rate 70 mL/min (>60); Est Glom Filt Rate - Afr Amer 85 mL/min (>60); Estimated Creatinine Clearance 70.95 ml/min; Glucose 169 mg/dL (74-106); Potassium 4.3 mmol/L (3.5-5.1); Sodium Level 135 mmol/L (136-145)
[2020-12-12 11:42] LABS: D-Dimer Quantitative (DVT/PE) <= 0.27 FEU/ug/m (0.27-0.49)
--- NOTE | 2020-12-12 12:27 | DCINST.ED_ITS ---
ED Disposition - Plan for ED Patient: Disposition: Home or Assisted Living Instructions: ED Chest Pain, Uncertain Cause Referrals: Naseem Sullivan MD [Primary Care Provider] - 3-5 Days if not improving Additional Instructions: All your test today were normal. The ultrasound showed no signs of a blood clot. Most likely this is musculoskeletal calf pain. Your entire cardiac work- up including EKG and chest x-ray along with the labs was normal. I do not feel that your chest pain is cardiac related. Tylenol and Motrin for pain. Follow-up with your doctor if not improving. Return if feeling a lot worse.
== END 2020-12-12 12:35 | disposition home or self-care (01) ==
PROVIDERS: Emergency Provider Emergency Medicine; PCP Family Medicine
DX: M79.662 Pain in left lower leg (principal); R07.89 Other chest pain; E78.00 Pure hypercholesterolemia, unspecified; E11.9 Type 2 diabetes mellitus without complications; Z79.84 Long term (current) use of oral hypoglycemic drugs
CPT/HCPCS: 71045; 80048; 84484; 85025; 85379; 93005; 93971; 99285; A4216

== ENCOUNTER → 2021-02-14 09:17 | Outpatient (CLI) | payer OTHER, SELFPAY ==
[2021-02-14 13:25] LABS: AST(SGOT) 25 U/L (15-37); Alanine Aminotransfer ALT/SGPT 57 U/L (13-56); Albumin, Serum 3.9 g/dL (3.2-5.0); Alkaline Phosphatase 59 U/L (45-117); Anion Gap 5 (5-15); BUN 9 mg/dL (7-18); BUN/Creat Ratio 9.5 RATIO (10-20); Calcium,Total 9.1 mg/dL (8.5-10.1); Chloride 103 mmol/L (98-107); Cholesterol 195 mg/dL (200); Creatinine, Serum 0.94 mg/dL (0.55-1.02); EST Glomerular Filtration Rate 69 mL/min (>60); Est Glom Filt Rate - Afr Amer 83 mL/min (>60); Globulin 3.9 g/dL (2.2-4.2); Glucose 121 mg/dL (74-106); High Density Lipoprotein 32 mg/dL; Potassium 4.2 mmol/L (3.5-5.1); Protein, Total 7.8 g/dL (6.4-8.2); Sodium Level 136 mmol/L (136-145); Thyroid Stim Hormone (TSH) 0.59 uIU/mL (0.358-3.74); Triglycerides 352 mg/dL; Very Low Density Lipoprotein 70 mg/dL (5-40)
[2021-02-17 12:45] LABS: Vitamin D,25 Hydroxy 25.8 ng/mL
== END ==
PROVIDERS: PCP Family Medicine; Visit Provider Family Medicine
DX: E11.9 Type 2 diabetes mellitus without complications (principal); E55.9 Vitamin D deficiency, unspecified; R74.01 Elevation of levels of liver transaminase levels; R74.02 Elevation of levels of lactic acid dehydrogenase [LDH]
CPT/HCPCS: 36415; 80053; 80061; 82306; 84443

== ENCOUNTER → 2021-06-01 | Outpatient (CLI) | payer OTHER, SELFPAY | END | disposition home or self-care (01) | PROVIDERS: PCP Family Medicine; Referring Provider Family Medicine; Visit Provider Family Medicine | DX: K52.9 Noninfective gastroenteritis and colitis, unspecified (principal) | CPT/HCPCS: 83630; 87506 ==

== ENCOUNTER → 2022-06-16 | Outpatient (CLI) | payer OTHER, SELFPAY ==
[2022-06-16 14:13] LABS: Lyme Ab Screen Interpretation REF LAB
[2022-06-16 18:00] LABS: Absolute Lymphocyte Count 2.65 X10^3/uL (0.83-4.51); Absolute Neutrophil Count 4.2 X10^3/uL (2.0-7.7); Basophil# 0.03 X10^3/uL; Basophil% 0.4 % (0-1); Eosinophil# 0.11 X10^3/uL; Eosinophils% 1.5 % (0-5); Hematocrit 40.6 % (37-47); Hemoglobin 13.4 g/dL (12.0-15.0); Lymphocyte # 2.65 X10^3/ul (0.83-4.51); Lymphocyte % 35.8 % (19-41); Mean Corpuscular Hgb 30.7 pg (27.0-32.0); Mean Corpuscular Volume 92.9 fL (81-99); Mean Platelet Vol. 10.1 fl (6.2-12.0); Monocyte# 0.43 X10^3/uL; Monocyte% 5.8 % (0-10); NRBC Flagged by Analyzer 0 % (0-5); Neutrophil # 4.16 X10^3/uL (2.7-7.7); Neutrophil % 56.2 % (47-70); Platelet Count 277 K/mm3 (150-450); RBC Distribution Width CV 12.9 % (11.6-14.6); RBC Distribution Width SD 44.3 fl (35.1-43.9); Red Blood Count 4.37 M/mm3 (4.2-5.4); White Blood Count 7.4 K/mm3 (4.4-11.0)
[2022-06-16 18:14] LABS: Vitamin D,25 Hydroxy 26.9 ng/mL
[2022-06-16 18:17] LABS: Hemoglobin A1c 6.2 % (3.8-5.6)
[2022-06-16 18:23] LABS: ALB/GLOB Ratio 0.9 RATIO (0.9-2.4); AST(SGOT) 16 U/L (15-37); Alanine Aminotransfer ALT/SGPT 42 U/L (13-56); Albumin, Serum 3.8 g/dL (3.2-5.0); Alkaline Phosphatase 55 U/L (45-117); Anion Gap 8 (5-15); BUN 9 mg/dL (7-18); BUN/Creat Ratio 10.2 RATIO (10-20); Chloride 103 mmol/L (98-107); Creatinine, Serum 0.88 mg/dL (0.55-1.02); EST Glomerular Filtration Rate 74 mL/min (>60); Est Glom Filt Rate - Afr Amer 89 mL/min (>60); Globulin 4.1 g/dL (2.2-4.2); Glucose 104 mg/dL (74-106); Potassium 3.9 mmol/L (3.5-5.1); Protein, Total 7.9 g/dL (6.4-8.2); Sodium Level 137 mmol/L (136-145); T4 Free Direct 0.99 ng/dL (0.76-1.46); Thyroid Stim Hormone (TSH) 1.03 uIU/mL (0.358-3.74)
[2022-06-18 14:06] LABS: Lyme Scn Total Ab w/Rflx Negative (Negative)
== END | disposition home or self-care (01) ==
LOC: MFPLAB 14:07
PROVIDERS: PCP Family Medicine; Referring Provider Family Medicine; Visit Provider Family Medicine
DX: E11.9 Type 2 diabetes mellitus without complications (principal); E55.9 Vitamin D deficiency, unspecified; R53.83 Other fatigue
CPT/HCPCS: 36415; 80053; 82306; 83036; 84439; 84443; 85025; 86140; 86618

== ENCOUNTER → 2022-06-19 | Outpatient (CLI) | payer OTHER, SELFPAY ==
--- NOTE | 2022-06-19 09:09 | BI_ITS ---
MAMMOGRAPHY - BILATERAL SCREENING REASON FOR EXAM: Female, 47 years old. Routine annual screening examination. PERTINENT HISTORY: Grandmother with breast cancer. TECHNIQUE: Digital bilateral breast gypsy (3D mammographic acquisition) in the CC and MLO projections. 2-D mediolateral oblique (MLO) and craniocaudad (CC) views of both breasts were obtained. CAD: Full Field Digital Mammography with Computer Added Detection was performed. COMPARISON: Comparison is made with prior outside examination dated 03/18/2020. FINDINGS: Breast Composition: There are scattered areas of fibroglandular density. There are no dominant masses or suspicious calcifications. Stable benign-appearing bilateral axillary lymph nodes. No other significant abnormalities are identified. There has been no significant change since the prior study. BI/SCRN MAMM (CAD)W/GYPSY BILAT IMPRESSION: Stable bilateral screening mammogram. Yearly follow-up mammogram recommended. (A) ASSESSMENT CATEGORY: BIRADS Category 2: Benign. A letter regarding these results will be sent to the patient by the facility within 30 days. Approximately 10% of breast cancers are not detected by mammography. A normal mammogram should not delay biopsy of a clinically suspicious abnormality. [id number] Electronically Signed: Faustino Vincent MD at 8:37 EDT ,
== END | disposition home or self-care (01) ==
LOC: OPBI 09:07
PROVIDERS: PCP Family Medicine; Visit Provider Family Medicine
DX: Z12.31 Encounter for screening mammogram for malignant neoplasm of breast (principal); Z80.3 Family history of malignant neoplasm of breast
CPT/HCPCS: 77063; 77067

== ENCOUNTER → 2022-09-27 | Outpatient (CLI) | payer OTHER, SELFPAY ==
[2022-09-27 15:24] LABS: Absolute Lymphocyte Count 2.21 X10^3/uL (0.83-4.51); Basophil# 0.04 X10^3/uL; Basophil% 0.6 % (0-1); Eosinophil# 0.12 X10^3/uL; Eosinophils% 1.8 % (0-5); Hematocrit 39.2 % (37-47); Hemoglobin 13.5 g/dL (12.0-15.0); Lymphocyte # 2.21 X10^3/ul (0.83-4.51); Mean Corp Hgb Conc 34.4 g/dL (32-36); Mean Corpuscular Hgb 31.7 pg (27.0-32.0); Monocyte# 0.29 X10^3/uL; Monocyte% 4.3 % (0-10); NRBC Flagged by Analyzer 0 % (0-5); Neutrophil # 4.02 X10^3/uL (2.7-7.7); Neutrophil % 60.2 % (47-70); Platelet Count 290 K/mm3 (150-450); RBC Distribution Width CV 12.7 % (11.6-14.6); RBC Distribution Width SD 43.1 fl (35.1-43.9); Red Blood Count 4.26 M/mm3 (4.2-5.4); White Blood Count 6.7 K/mm3 (4.4-11.0)
[2022-09-27 15:31] LABS: Vitamin B12 712 pg/mL (211-911)
[2022-09-27 15:34] LABS: Hemoglobin A1c 6.1 % (3.8-5.6)
[2022-09-27 16:08] LABS: ALB/GLOB Ratio 1.1 RATIO (0.9-2.4); AST(SGOT) 17 U/L (15-37); Alanine Aminotransfer ALT/SGPT 47 U/L (13-56); Alkaline Phosphatase 57 U/L (45-117); Anion Gap 6 (5-15); BUN 10 mg/dL (7-18); BUN/Creat Ratio 11.6 RATIO (10-20); CRP 5.43 mg/L (0.0-3.0); Chloride 103 mmol/L (98-107); Creatinine, Serum 0.86 mg/dL (0.55-1.02); EST Glomerular Filtration Rate 75 mL/min (>60); Est Glom Filt Rate - Afr Amer 91 mL/min (>60); Globulin 3.5 g/dL (2.2-4.2); Glucose 163 mg/dL (74-106); Potassium 4.1 mmol/L (3.5-5.1); Protein, Total 7.5 g/dL (6.4-8.2); Sodium Level 137 mmol/L (136-145); Thyroid Stim Hormone (TSH) 0.68 uIU/mL (0.358-3.74)
[2022-09-28 07:48] LABS: PTHIN 29.3 pg/mL (18.4-80.1)
== END | disposition home or self-care (01) ==
LOC: MFPLAB 12:11
PROVIDERS: PCP Family Medicine; Visit Provider Family Medicine
DX: M62.838 Other muscle spasm (principal); R20.2 Paresthesia of skin
CPT/HCPCS: 36415; 80053; 82607; 82746; 83036; 83970; 84443; 85025; 86140

== ENCOUNTER → 2022-10-02 | Outpatient (CLI) | payer OTHER, SELFPAY ==
[2022-10-02 10:49] LABS: Lyme Ab Screen Interpretation REF LAB
[2022-10-02 12:13] LABS: Absolute Lymphocyte Count 1.89 X10^3/uL (0.83-4.51); Absolute Neutrophil Count 3.3 X10^3/uL (2.0-7.7); Basophil# 0.02 X10^3/uL; Basophil% 0.4 % (0-1); Eosinophil# 0.11 X10^3/uL; Eosinophils% 1.9 % (0-5); Hematocrit 40.3 % (37-47); Hemoglobin 13.6 g/dL (12.0-15.0); Lymphocyte # 1.89 X10^3/ul (0.83-4.51); Lymphocyte % 33.4 % (19-41); Mean Corp Hgb Conc 33.7 g/dL (32-36); Mean Corpuscular Hgb 30.7 pg (27.0-32.0); Mean Platelet Vol. 10.4 fl (6.2-12.0); Monocyte# 0.29 X10^3/uL; Monocyte% 5.1 % (0-10); NRBC Flagged by Analyzer 0 % (0-5); Neutrophil # 3.34 X10^3/uL (2.7-7.7); Platelet Count 277 K/mm3 (150-450); RBC Distribution Width CV 12.6 % (11.6-14.6); RBC Distribution Width SD 41.9 fl (35.1-43.9); Red Blood Count 4.43 M/mm3 (4.2-5.4); White Blood Count 5.7 K/mm3 (4.4-11.0)
[2022-10-02 12:20] LABS: Erythrocyte Sedimentation Rate 23 mm/hr (0-30)
[2022-10-02 13:04] LABS: Syphilis Antibodies Non-reactive
[2022-10-02 13:32] LABS: ALB/GLOB Ratio 1.1 RATIO (0.9-2.4); AST(SGOT) 21 U/L (15-37); Alanine Aminotransfer ALT/SGPT 57 U/L (13-56); Alkaline Phosphatase 57 U/L (45-117); Anion Gap 12 (5-15); BUN 11 mg/dL (7-18); BUN/Creat Ratio 12.1 RATIO (10-20); Chloride 99 mmol/L (98-107); Creatinine, Serum 0.91 mg/dL (0.55-1.02); EST Glomerular Filtration Rate 71 mL/min (>60); Est Glom Filt Rate - Afr Amer 86 mL/min (>60); Globulin 3.5 g/dL (2.2-4.2); Glucose 177 mg/dL (74-106); Potassium 4.3 mmol/L (3.5-5.1); Prolactin 4.9 ng/mL; Protein, Total 7.5 g/dL (6.4-8.2); Rheumatoid Factor < 10.0 IU/mL (<15); Sodium Level 137 mmol/L (136-145)
[2022-10-03 16:39] LABS: Anti-Nuclear Antibody Test Negative (.)
[2022-10-03 17:32] LABS: ANTINUCLEAR ANTIBODIES DIRECT Negative (Negative)
[2022-10-04 16:09] LABS: Cytoplasmic Ab (C-ANCA) <1:20 titer (Neg:<1:20)
[2022-10-04 21:00] LABS: Lyme Scn Total Ab w/Rflx Negative (Negative); Perinuclear Ab (P-ANCA) <1:20 titer (Neg:<1:20)
== END | disposition home or self-care (01) ==
LOC: MFPLAB 10:46
PROVIDERS: PCP Family Medicine; Visit Provider Family Medicine
DX: M25.50 Pain in unspecified joint (principal); H53.9 Unspecified visual disturbance; M62.81 Muscle weakness (generalized)
CPT/HCPCS: 36415; 80053; 84146; 84443; 85025; 85652; 86038; 86225; 86235; 86256; 86431; 86618; 86780

== ENCOUNTER → 2023-08-21 | Outpatient (CLI) | payer OTHER, SELFPAY ==
--- NOTE | 2023-08-21 17:25 | RAD_ITS ---
STUDY: X-RAY - RIGHT SHOULDER REASON FOR EXAM: Female, 48 years old. RIght shoulder injury TECHNIQUE: 4 view(s) of the shoulder. COMPARISON: December 12, 2020 FINDINGS: Normal glenohumeral articulation. Normal acromioclavicular joint. Normal acromion. Normal humeral head and visualized proximal humerus. The soft tissue structures are unremarkable. Normal visualized pulmonary apex. RAD/Shoulder min 2 Views IMPRESSION: Normal x-ray examination of the shoulder. Electronically Signed: Lolly Sadler MD at 5:55 EST Reading Location ID and State: [facility] / [place] Tel , Service support ,
== END | disposition home or self-care (01) ==
LOC: MTRAD 17:24
PROVIDERS: PCP Family Medicine; Referring Provider Family Medicine; Visit Provider Family Medicine
DX: M25.511 Pain in right shoulder (principal)
CPT/HCPCS: 73030

== ENCOUNTER → 2023-08-24 | Outpatient (CLI) | payer OTHER, SELFPAY ==
[2023-08-24 18:19] LABS: Hemoglobin A1c 6.4 % (3.8-5.6)
[2023-08-24 18:20] LABS: ALB/GLOB Ratio 1.1 RATIO (0.9-2.4); AST(SGOT) 20 U/L (15-37); Alanine Aminotransfer ALT/SGPT 50 U/L (13-56); Albumin, Serum 3.9 g/dL (3.2-5.0); Alkaline Phosphatase 56 U/L (45-117); Anion Gap 7 (5-15); BUN 13 mg/dL (7-18); BUN/Creat Ratio 14.5 RATIO (10-20); Calcium,Total 8.5 mg/dL (8.5-10.1); Chloride 104 mmol/L (98-107); EST Glomerular Filtration Rate 72 mL/min (>60); Est Glom Filt Rate - Afr Amer 87 mL/min (>60); Globulin 3.5 g/dL (2.2-4.2); Glucose 173 mg/dL (74-106); Potassium 4.2 mmol/L (3.5-5.1); Protein, Total 7.4 g/dL (6.4-8.2); Sodium Level 137 mmol/L (136-145)
== END | disposition home or self-care (01) ==
LOC: MFPLAB 13:48
PROVIDERS: PCP Family Medicine; Visit Provider Family Medicine
DX: E11.9 Type 2 diabetes mellitus without complications (principal)
CPT/HCPCS: 36415; 80053; 83036

== ENCOUNTER 2024-07-14 07:16 | Day surgery (SDC) | payer OTHER, SELFPAY ==
[2024-07-14] VITALS (8 sets, daily range): BP systolic 93–124; BP diastolic 67–83; PULSE 62–74; RESP 16; TEMP 36.1–36.5; O2SAT 94–100; BMI 35.0
--- NOTE | 2024-07-14 | COLBX_PTH ---
PATIENT: MAYUR RAMOS LOC: EN U#:[id number] AGE/SX: 49/F ROOM: RE07/14/[address]: Dr. Joyce Hannah MD : 1975 BED: DIS: 07/14/2024 SPEC #: [id number] RECD: 07/14/24 13:13 STATUS: CHHAYA REQ #: [id number] MALLY: 07/14/24 00:[address]: Joyce Hannah DEPT: SURGICAL PATHOLOGY RECD BY: José Antonio Johnson ENTERED: 07/14/24 13:14 SP TYPE: COLON BX OTHR DR: Dr. Naseem Sullivan MD Tissues: Rectum, NOS Procedures: Surgery Specimen Level IV HEADER OPERATION: Colonoscopy with polyp biopsy PRE-OP DIAGNOSIS: Encounter for screening for malignant neoplasm of colon TISSUE SUBMITTED: Rectal polyp biopsy x2 MICROSCOPIC DIAGNOSIS Rectal polyp x2, biopsy: Fragments of hyperplastic polyp. SJ.mr 07/15/2024 MICROSCOPIC DESCRIPTION Slides are reviewed. GROSS DESCRIPTION Received in fixative is one container labeled with the patient's name and designated Rectal polyp biopsy x2. The specimen consists of multiple irregular fragments of light mccord soft tissue that in aggregate measure 1.2 x 0.2 x 0.1 cm. The specimen is totally submitted in one cassette. 07/14/2024 TC:1 CPT:18170
--- NOTE | 2024-07-14 07:21 | H&P.OPEN ---
HPI - General General Date of Service: 07/14/24 HPI Narrative MAYUR RAMOS, is a 49 F who presents for colonoscopy?screening. Patient never had previous colonoscopy. Patient has bowel movements daily denies any blood. Patient maternal aunt had colon cancer in her early 40s otherwise denies any immediate relatives. Patient denies any chronic abdominal pain/nausea/vomiting. Patient does have reflux which takes Tums for did not start until she started Ozempic. [facility] Medical History Wears glasses Fatty liver Migraine headache TIA (transient ischemic attack) Heartburn Former smoker Perforated tympanic membrane Family history of malignant neoplasm of colon in relative diagnosed when younger than 50 years of age Hernia Depression Back pain GERD (gastroesophageal reflux disease) Diabetes Abdominal pain Home Medications ?Medication ?Instructions ?Recorded ?Last Taken ?Type metformin 1,000 mg tablet 500 mg PO DAILY 06/02/19 06/23/19 History semaglutide 0.25 mg or 0.5 mg (2 0.5 mg subcut QWEEK 05/13/24 06/22/24 History mg/3 mL) subcutaneous pen injector (Ozempic) cholecalciferol (vitamin D3) 50 4,000 unit PO DAILY 07/07/24 Unknown History mcg (2,000 unit) tablet (Vitamin D3) fluticasone propionate 50 2 spray intranasal DAILY PRN 07/07/24 Unknown History mcg/actuation nasal ALLERGIES spray,suspension (24 Hour Allergy Relief) loratadine 10 mg tablet 10 mg PO DAILY 07/07/24 Unknown History (Allerclear) multivitamin (Daily Multi-Vitamin 1 tab PO DAILY 07/07/24 Unknown History tablet) topiramate 50 mg tablet 50 mg PO DAILY 07/07/24 Unknown History vitamin A 3,000 mcg (10,000 unit) 1,000 unit PO DAILY 07/07/24 Unknown History capsule Allergy/AdvReac Type Severity Reaction Status Date / Time Environmental Allergies: Allergy Other Verified 07/07/24 12:49 Uncoded (seasonal) Family History Aunt Cancer ovarian Grandfather Heart disease Aunt Colon cancer, Onset Age: 40 in her early 40's Surgical History History of hysterectomy History of incisional hernia repair History of tonsillectomy and adenoidectomy History of section History of laparoscopic cholecystectomy History of hernia repair Social History household members: spouse number of children: 3 current occupational status: employed current occupation: [employer] Smoking Status: Former smoker alcohol intake: current alcohol intake frequency: a few times a week Alcohol type: wine substance use type: does not use Past Medical/Surgical History Planned Operation Planned Operative Procedure(s): COLONOSCOPY S.O.S: No Previous Hospitalizations/Surgeries HX Hospitalizations: No HX of Surgeries: x3/hysterectomy, ventral hernia repair, laparoscopic cholecytectomy, tonsillectomy, adenoidectomy,ear tubes Any Problems With Anesthesia: Yes (HARD TIME COMING OUT OF IT) You/Your Family Experience Fever (Hyperthermia) With Anes: No Cholinesterase deficiency: No Cardiovascular Hx Chest Pain within Last 2 months: No Hx of Irregular Heartbeat and/or Afib: No Hx Heart Attack: No Hx Congestive Heart Failure: No Hx Rheumatic Fever: No Hx Hypertension: No Hx Internal Defibrillator: No Hx Pacemaker: No Hx Cardiac Catheterization: No Hx Cardiac Surgery/Stents/Etc.: No Hx Stress Test: No Hx Pain in Legs when Walking/Leg Cramps: No Respiratory Chronic Cough: No HX of Shortness of Breath: No Hoarseness: No Hx Chronic Obstructive Pulmonary Disease (COPD): No Hx Asthma: No Hx Emphysema: No Hx Sleep Apnea: No Hx Respiratory Tract Infection/Cold (presently): No Do You Snore Loudly (louder than talking or can be heard): No Do You Often Feel Tired/ Fatigued/ Sleepy Dring Daytime?: No Has Anyone Observed You Stop Breathing During Sleep?: No Result (for STOP score): Negative Hx Smoking: Yes (quit 8 yrs ago/ 1ppd for 16 yrs) Smoking Status: Former smoker Gastrointestinal Hx Gastrointestinal Disorders: No Hx Gastrointestinal Bleed: No Hx Ulcer: No Hx Hiatal Hernia: No Difficulty Chewing/Swallowing: No Special diet followed at home: Yes (ada) Hx Unplanned Weight Loss of 20#: No HX Unplanned Weight Gain of 20#: No Neurological Hx Seizures: No HX Syncope/Blackout Spells/Unconsciousness: No Hx Transient Ischemic Attacks (TIA): No Hx Multiple Sclerosis: No Hx Parkinson's Disease: No Hx Head/Neck Injury: No Hx Headaches: No Hx Back Injury/Pain: Yes (occ back pain) Recent Onset of Speech Difficulty: No Restless Legs: No Does patient have nerve stimulator: No Blood Disorder Hx Leukemia: No Bleeding Tendencies: No Hx Deep Vein Thrombosis: No Hx High Cholesterol: No Blood Transmitted Disease: No Hx Hepatitis: No Hx Cirrhosis: No (fatty liver) Hx Anemia: No Hx Blood Disorders: No Reproduction : No Is Patient Lactating: No Hx Hysterectomy: Yes Hx Tubal Ligation: No Are You Post Menopause: No Genitourinary Hx Renal Disease: No Hx Dialysis: No Musculoskeletal Hx Arthritis: No Hx Rheumatoid Arthritis: No Hx Gout: No Recent Onset of an Orthopedic Problem: No Endocrine Hx Diabetes: Yes (oral meds) Insulin: No Thyroid Disease: No Hx Steroid Therapy: No Psycho/Social Hx Substance Use: No Hx Alcohol Use: Yes (occ) Hx Anxiety: Yes (situational) Hx Depression: No Mental Illness: No Hx Dementia: No Miscellaneous Hx Cancer: No (.) Recent Exposure to Contagious Disease: No Hx of C-Diff: No Any Loose Teeth: No Allergies Environmental Allergies: Uncoded (seasonal) Allergy (Verified 07/07/24 12:49) Other Discharge Is Pt Admitted From a Skilled Nursing, or a Snf: No Who Could Help: After D/C, Where Do you Plan to Go: Return Home Physical Exam Const alert, oriented x3 and no apparent distress HEENT normocephalic and head/scalp atraumatic Resp normal respiratory effort Cardio regular rate GI soft to palpation and non-tender; Negative for non-distended Palpation: Negative for guarding Extremity no clubbing, cyanosis or edema Skin no rashes or lesions noted Neuro CN's II-XII intact bilaterally Psych mental status grossly normal Assessment & Plan Assessment/Plan (1) Encounter for screening for malignant neoplasm of colon: Surgery Risks - Colonoscopy I discussed with the patient the risks of the procedure: Yes Risks Include but are not Limited To: Risks include but are not limited to: Bleeding, perforation requiring further surgery, inability to complete colonoscopy requiring barium enema.
--- NOTE | 2024-07-14 07:48 | PRE.ANES_ITS ---
ASA Classification* ASA Classification ASA Classification: 2 Assessment & Plan Anesthesia* Anesthesia Assessment Anesthesia Assessment: Discussed sedation and/or anesthesia options, risks, benefits, and alternatives with patient/parents/legal guardian/POA. Questions invited. The patient/parents/legal guardian/POA seems to understand and agrees to proceed with anesthesia plan. Reviewed the physical assessment, medical history, allergy history and patient home medications list prior to surgery/procedure/anesthetic and documented any changes. Performed airway and anesthesia risk assessments. Anesthesia Type Anesthesia Type: MAC (see written pre anesthesia record for full assessment) Anesthesia Focused Assessment* Temperature: 97.4 F Pulse Rate: 74 Blood Pressure: 124/83 Respiratory Rate: 16 Pulse Ox: 97 Airway Assessment Mouth opens: >3 cm Mallampati Score: II Focused Labs Anesthesia Preop lab: CBC WBC 5.7 K/mm3 (4.4-11.0) 10/02/22 10:46 RBC 4.43 M/mm3 (4.2-5.4) 10/02/22 10:46 Hgb 13.6 g/dL (12.0-15.0) 10/02/22 10:46 Hct 40.3 % (37-47) 10/02/22 10:46 Plt Count 277 K/mm3 (150-450) 10/02/22 10:46 CHEMISTRY Potassium 4.2 mmol/L (3.5-5.1) 08/24/23 13:49 Sodium 137 mmol/L (136-145) 08/24/23 13:49 BUN 13 mg/dL (7-18) 08/24/23 13:49 Creatinine 0.90 mg/dL (0.55-1.02) 08/24/23 13:49 Glucose 173 mg/dL (74-106) H 08/24/23 13:49 POC Glucose 132 mg/dL (70-110) H 08/19/19 08:46 TSH 0.80 uIU/mL (0.358-3.74) 10/02/22 10:46 COAG PT 14.0 SECONDS (11.7-14.9) 06/24/19 17:55 Pre-Assessment Diagnosis/Proposed Procedure Planned Operative Procedure(s): COLONOSCOPY Anesthesia History Anesthesia History - director of publications: Anesthesia History - director of publications Hx Hospitalization No 10/21/24 07:22 Any Problems With Anesthesia Yes: HARD TIME COMING OUT 07/14/24 07:22 OF IT Cholinesterase deficiency No 07/14/24 07:22 You/Your Family Experience No 07/14/24 07:22 fever (hyperthermia) with Relationship Recent Exposure to Contagious No 07/14/24 07:31 Disease Does patient have nerve No 07/14/24 07:22 stimulator Patient instructed to have device shut off --Does patient have Pacemaker No 07/14/24 07:31 or ICD? When Was Last Pacemaker Check QUESTION #4 FULL TEXT: You/Your Family Experience fever (hyperthermia) with Anesthesia Last Oral Intake Last Oral intake: Last Oral Intake NPO since 23:00 07/14/24 07:31 Meds taken in AM with sips of No 07/14/24 07:31 water? Meds patient instructed to take am of surgery PONV PONV - director of publications: PONV - director of publications Female Yes 07/07/24 12:54 HX of Motion Sickness No 07/07/24 12:54 HX of N/V After Surgery No 07/07/24 12:54 Non-Smoker Yes 07/07/24 12:54 Duration of Surgery greater No 07/07/24 12:54 than 60 minutes Number of Risk Factors 2 07/07/24 12:54 PONV Score Moderate Risk 07/07/24 12:54 Height & Weight Height & Weight: Anesthesia: Height & Weight Height 5 ft 5.5 in 07/14/24 07:31 Weight: 97 kg 07/14/24 07:31 Body Mass Index (BMI) 35.0 07/14/24 07:31 Respiratory Assessment Respiratory Assessment - director of publications: Respiratory Tract Infection Hx - director of publications Hx Respiratory Tract Infection No 07/14/24 07:22 STOP Sleep Apnea STOP Sleep Apnea - director of publications: STOP Sleep Apnea - director of publications Hx Hypertension No 07/14/24 07:22 Hx Sleep Apnea No 07/14/24 07:22 CPAP BIPAP Do you snore loudly (louder No 07/14/24 07:22 than talking or can be heard Do you often feel tired/ No 07/14/24 07:22 fatigued/ sleepy during daytime? Has anyone observed you stop No 07/14/24 07:22 breathing during sleep? STOP Results Negative 07/14/24 07:22 QUESTION #5 FULL TEXT : Do you snore loudly (louder than talking or can be heard through closed doors)? 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 Specify any problems Hx of Preganancy in last 3 No 07/07/24 12:54 Months Nurse Filling Out Transfusion VLEHCONEJOS 07/07/24 12:54 & Questions: Date: 07/07/24 07/07/24 12:54 Time: 13:04 07/07/24 12:54 Patient unable to answer at this time (ie. confused, unrespo /Reproduction History /Reproductive History - director of publications: /Reproductive Hx- director of publications Hx Now No 07/14/24 07:22 Gestational Age (in weeks): EDC: Hx Hx Para Hx [facility] Medical History Wears glasses Fatty liver Migraine headache TIA (transient ischemic attack) Heartburn Former smoker Perforated tympanic membrane Family history of malignant neoplasm of colon in relative diagnosed when younger than 50 years of age Hernia Depression Back pain GERD (gastroesophageal reflux disease) Diabetes Abdominal pain Home Medications ?Medication ?Instructions ?Recorded ?Last Taken ?Type metformin 1,000 mg tablet 500 mg PO DAILY 06/02/19 06/23/19 History semaglutide 0.25 mg or 0.5 mg (2 0.5 mg subcut QWEEK 05/13/24 06/22/24 History mg/3 mL) subcutaneous pen injector (Ozempic) cholecalciferol (vitamin D3) 50 4,000 unit PO DAILY 07/07/24 Unknown History mcg (2,000 unit) tablet (Vitamin D3) fluticasone propionate 50 2 spray intranasal DAILY PRN 07/07/24 Unknown History mcg/actuation nasal ALLERGIES spray,suspension (24 Hour Allergy Relief) loratadine 10 mg tablet 10 mg PO DAILY 07/07/24 Unknown History (Allerclear) multivitamin (Daily Multi-Vitamin 1 tab PO DAILY 07/07/24 Unknown History tablet) topiramate 50 mg tablet 50 mg PO DAILY 07/07/24 Unknown History vitamin A 3,000 mcg (10,000 unit) 1,000 unit PO DAILY 07/07/24 Unknown History capsule Allergy/AdvReac Type Severity Reaction Status Date / Time Environmental Allergies: Allergy Other Verified 07/07/24 12:49 Uncoded (seasonal) Family History Aunt Cancer ovarian Grandfather Heart disease Aunt Colon cancer, Onset Age: 40 in her early 40's Surgical History History of hysterectomy History of incisional hernia repair History of tonsillectomy and adenoidectomy History of section History of laparoscopic cholecystectomy History of hernia repair Social History household members: spouse number of children: 3 current occupational status: employed current occupation: [employer] Smoking Status: Former smoker alcohol intake: current alcohol intake frequency: a few times a week Alcohol type: wine substance use type: does not use Review of Systems (Anesthesia) ROS Narrative System reviewed and no additional complaints, except as documented.
--- NOTE | 2024-07-14 09:20 | PCM.POST.ANE ---
Anesthesia: Postop Eval I Current Vital Signs Temperature: 97 F Pulse Rate: 62 Blood Pressure: 93/67 Respiratory Rate: 16 Pulse Ox: 100 Oxygen Delivery Method: Room Air Assessment Airway patent: Yes Spontaneous unlabored respirations: Yes Mental status: Awake nausea: No Vomiting: No Anesthesia Complication: No Fluid Hydration Crystalloid volume administer (ml): 20 Total IV fluid infused: 20 Progress Note Anesthesia document: Postop Eval 1 completed: Yes
--- NOTE | 2024-07-14 09:21 | POSTOPAN2_ITS ---
Anesthesia Postop Eval I Sum Postop Eval Completion status Anesthesia document: Postop Eval 1 completed: Yes Anesthesia Postop Eval I Summary Anesthesia Postop Eval I Summary: Anesthesia Postop Eval I: Assessment Summary Airway patent Yes 07/14/24 09:21 [email or web address] Spontaneous unlabored Yes 07/14/24 09:21 [email or web address] [email or web address] respirations Mental status Awake 07/14/24 09:21 CLAY [email or web address] nausea No 07/14/24 09:21 CLAY [email or web address] Vomiting No 07/14/24 09:21 CLAY [email or web address] Anesthesia Postop Eval I: Fluid Summary Crystalloid volume administer 20 07/14/24 09:21 CLAY [email or web address].MDOT (ml) Colloids volume administered ( ml) Blood Product volume administered (ml) Total IV fluid infused 20 07/14/24 09:21 CLAY [email or web address] Anesthesia Postop Eval I: Summary Notes Anesthesia Complication No 07/14/24 09:21 CLAY [email or web address].SHER Anesthesia Complication Comment: Post-operative progress note Anesthesia: Postop Eval II Evaluation Mental status: Awake and Calm Pain Level: 0 nausea: No Vomiting: No Complications Anesthesia Complication: No
--- NOTE | 2024-07-14 09:21 | PCM.POSTANE2 ---
Anesthesia Postop Eval I Sum Postop Eval Completion status Anesthesia document: Postop Eval 1 completed: Yes Anesthesia Postop Eval I Summary Anesthesia Postop Eval I Summary: Anesthesia Postop Eval I: Assessment Summary Airway patent Yes 07/14/24 09:21 ADMINISTRATIVE ASSISTANT RECEPTIONIST.[email or web address] Spontaneous unlabored Yes 07/14/24 09:21 ADMINISTRATIVE ASSISTANT RECEPTIONIST.SHER respirations Mental status Awake 07/14/24 09:21 ADMINISTRATIVE ASSISTANT RECEPTIONIST.MDOT nausea No 07/14/24 09:21 ADMINISTRATIVE ASSISTANT RECEPTIONIST.MDOT Vomiting No 07/14/24 09:21 ADMINISTRATIVE ASSISTANT RECEPTIONIST.MDOT Anesthesia Postop Eval I: Fluid Summary Crystalloid volume administer 20 07/14/24 09:21 ADMINISTRATIVE ASSISTANT RECEPTIONIST.MDOT (ml) Colloids volume administered ( ml) Blood Product volume administered (ml) Total IV fluid infused 20 07/14/24 09:21 ADMINISTRATIVE ASSISTANT RECEPTIONIST.SHER Anesthesia Postop Eval I: Summary Notes Anesthesia Complication No 07/14/24 09:21 ADMINISTRATIVE ASSISTANT RECEPTIONIST.SHER Anesthesia Complication Comment: Post-operative progress note Anesthesia: Postop Eval II Evaluation Mental status: Awake and Calm Pain Level: 0 nausea: No Vomiting: No Complications Anesthesia Complication: No
--- NOTE | 2024-07-14 15:27 | OP.CCLET_ITS ---
07/14/2024 Naseem Sullivan [address] [facility] [place] [address] Re : Colonoscopy procedure for Estrella Murdockfield Dear Dr. Sullivan This procedure was performed on Sunday, July 14, 2024. My impressions and recommendations are as follows: Impressions : - Two less than 5 mm polyps in the rectum, removed with a cold biopsy forceps. Resected and retrieved. - The examination was otherwise normal on direct and retroflexion views. Recommendations : - Discharge patient to home. - Resume previous diet. - Continue present medications. - Await pathology results. - Repeat colonoscopy in 5-10 years for surveillance based on pathology results. My findings are described in the full procedure note, which is enclosed. If I can be of further assistance, please feel free to contact me at Doctor phone number(s): , Work: . Sincerely, MD Joyce Grande MD 07/14/2024 9:25:36 AM This report has been signed electronically.
--- NOTE | 2024-07-14 15:27 | OP.COLON_ITS ---
Patient Name: Estrella Rahman Procedure Date: 07/14/2024 8:55 AM Date of : 1975 Age: 49 Procedure: Colonoscopy Indications: Screening for colorectal malignant neoplasm Providers: Joyce Hannah MD Medicines: Monitored Anesthesia Care Patient Profile: This is a 49 year old female. Last Colonoscopy: none. The patient's first colonoscopy is today. Complications: No immediate complications. Procedure: Pre-Anesthesia Assessment: - Prior to the procedure, a History and Physical was performed, and patient medications and allergies were reviewed. The patient's tolerance of previous anesthesia was also reviewed. The risks and benefits of the procedure and the sedation options and risks were discussed with the patient. All questions were answered, and informed consent was obtained. Prior Anticoagulants: The patient has taken no anticoagulant or antiplatelet agents. ASA Grade Assessment: Per anesthesia. After reviewing the risks and benefits, the patient was deemed in satisfactory condition to undergo the procedure. After I obtained informed consent, the scope was passed under direct vision. Throughout the procedure, the patient's blood pressure, pulse, and oxygen saturations were monitored continuously. The was introduced through the anus and advanced to the cecum, identified by the appendiceal orifice, ileocecal valve and palpation. The colonoscopy was performed without difficulty. The patient tolerated the procedure well. The quality of the bowel preparation was good. Scope In: 8:59:05 AM Scope Withdrawal Time 0 hours 10 minutes 0 seconds Scope Out: 9:19:03 AM Total Procedure Duration Time 0 hours 19 minutes 58 seconds Findings: The perianal and digital rectal examinations were normal. Two sessile polyps were found in the rectum. The polyps were less than 5 mm in size. These polyps were removed with a cold biopsy forceps. Resection and retrieval were complete. The exam was otherwise without abnormality on direct and retroflexion views. Impression: - Two less than 5 mm polyps in the rectum, removed with a cold biopsy forceps. Resected and retrieved. - The examination was otherwise normal on direct and retroflexion views. Recommendation: - Discharge patient to home. - Resume previous diet. - Continue present medications. - Await pathology results. - Repeat colonoscopy in 5-10 years for surveillance based on pathology results. Procedure Code(s): --- Professional --- 28792, PT, Colonoscopy, flexible; with biopsy, single or multiple Diagnosis Code(s): --- Professional --- Z12.11, Encounter for screening for malignant neoplasm of colon D12.8, Benign neoplasm of rectum CPT copyright 2021 [employer]. All rights reserved. The codes documented in this report are preliminary and upon glass breaker review may be revised to meet current compliance requirements. MD Joyce Grande MD 07/14/2024 9:25:36 AM This report has been signed electronically. Number of Addenda: 0 Note Initiated On: 07/14/2024 8:55 AM
== END 2024-07-14 10:04 | disposition home or self-care (01) ==
LOC: EN 07:17 → AC 07:18
PROVIDERS: PCP Family Medicine; Referring Provider Family Medicine; Visit Provider Surgery
PROC: 0DJD8ZZ Inspection of Lower Intestinal Tract, Via Natural or Artificial Opening Endoscopic (ICD-10-PCS; CPT 45378; principal; 2024-07-14 08:25)
DX: Z12.11 Encounter for screening for malignant neoplasm of colon (principal); E11.9 Type 2 diabetes mellitus without complications; K62.1 Rectal polyp; Z80.0 Family history of malignant neoplasm of digestive organs; Z79.84 Long term (current) use of oral hypoglycemic drugs; Z87.891 Personal history of nicotine dependence; Z86.73 Personal history of transient ischemic attack (TIA), and cerebral infarction without residual deficits
CPT/HCPCS: 45380; 88305; A4216

== ENCOUNTER → 2024-09-15 | Outpatient (CLI) | payer OTHER, SELFPAY ==
--- NOTE | 2024-09-15 14:15 | RAD_ITS ---
INDICATION: cough EXAMINATION/TECHNIQUE: X-RAY - XR Chest 2 Views COMPARISON: No relevant prior comparison study available FINDINGS: LINES/DEVICES: None. LUNGS: No consolidation, edema or effusion. No pneumothorax. MEDIASTINUM AND CARDIOVASCULAR STRUCTURES: Cardiac silhouette not enlarged. Central airways and mediastinal contour are unremarkable. BONES AND SOFT TISSUES: Unremarkable. RAD/Chest PA and Lateral IMPRESSION: No radiographic evidence of acute cardiopulmonary disease. Electronically Signed: Delaney Marino MD at 14:38 EST ,
== END | disposition home or self-care (01) ==
PROVIDERS: PCP Family Medicine; Referring Provider Physician Assistant; Visit Provider Physician Assistant
DX: R05.9 Cough, unspecified (principal)
CPT/HCPCS: 71046

== ENCOUNTER → 2024-11-25 | Outpatient (CLI) | payer OTHER, SELFPAY ==
[2024-11-25 12:23] LABS: Hematocrit 38.8 % (37-47); Hemoglobin 13.4 g/dL (12.0-15.0); Mean Corp Hgb Conc 34.5 g/dL (32-36); Mean Corpuscular Hgb 31.5 pg (27.0-32.0); Mean Corpuscular Volume 91.3 fL (81-99); Platelet Count 225 K/mm3 (150-450); RBC Distribution Width SD 43.2 fl (35.1-43.9); Red Blood Count 4.25 M/mm3 (4.2-5.4); White Blood Count 6.2 K/mm3 (4.4-11.0)
[2024-11-25 13:07] LABS: ALB/GLOB Ratio 1.4 RATIO (0.9-2.4); AST(SGOT) 22 U/L (<=31); Alanine Aminotransfer ALT/SGPT 50 U/L (<=34); Albumin, Serum 4.3 g/dL (3.5-5.0); Alkaline Phosphatase 60 U/L (35-104); Anion Gap 10 (5-15); BUN 12 mg/dL (4-19); BUN/Creat Ratio 13.7 RATIO (10-20); Calcium,Total 9.2 mg/dL (7.6-11.0); Chloride 104 mmol/L (98-108); Creatinine, Serum 0.85 mg/dL (0.70-1.20); EST Glomerular Filtration Rate 85 (>60); Globulin 3.1 g/dL (2.2-4.2); Glucose 173 mg/dL (70-99); Potassium 4.3 mmol/L (3.3-5.1); Protein, Total 7.4 g/dL (5.9-8.4); Sodium Level 137 mmol/L (133-145); Thyroid Stim Hormone (TSH) 0.835 uIU/mL (0.300-4.200); Total Bilirubin 0.23 mg/dL (0.00-1.30)
[2024-11-25 21:11] LABS: Hemoglobin A1c 6.3 % (<=5.6)
== END | disposition home or self-care (01) ==
LOC: MFPLAB 10:44
PROVIDERS: PCP Family Medicine; Referring Provider Family Medicine; Visit Provider Family Medicine
DX: Z01.84 Encounter for antibody response examination (principal); E11.9 Type 2 diabetes mellitus without complications
CPT/HCPCS: 36415; 80053; 83036; 84443; 85027; 86765

== ENCOUNTER → 2025-03-16 | Outpatient (CLI) | payer OTHER, SELFPAY ==
[2025-03-16 17:54] LABS: Hematocrit 42.7 % (37-47); Hemoglobin 14.7 g/dL (12.0-15.0); Mean Corp Hgb Conc 34.4 g/dL (32-36); Mean Corpuscular Volume 90.1 fL (81-99); Platelet Count 302 K/mm3 (150-450); RBC Distribution Width CV 12.4 % (11.6-14.6); Red Blood Count 4.74 M/mm3 (4.2-5.4)
[2025-03-16 18:34] LABS: Hemoglobin A1c 8.7 % (<=5.6)
[2025-03-16 18:37] LABS: ALB/GLOB Ratio 1.4 RATIO (0.9-2.4); AST(SGOT) 21 U/L (<=31); Alanine Aminotransfer ALT/SGPT 66 U/L (<=34); Albumin, Serum 4.2 g/dL (3.5-5.0); Alkaline Phosphatase 62 U/L (35-104); Anion Gap 11 (5-15); BUN 11 mg/dL (4-19); BUN/Creat Ratio 10.9 RATIO (10-20); Carbon Dioxide 27.2 mmol/L (21.0-32.0); Chloride 97 mmol/L (98-108); Creatinine, Serum 1.01 mg/dL (0.70-1.20); EST Glomerular Filtration Rate 69 (>60); Glucose 230 mg/dL (70-99); Potassium 4.2 mmol/L (3.3-5.1); Protein, Total 7.2 g/dL (5.9-8.4); Sodium Level 135 mmol/L (133-145); Thyroid Stim Hormone (TSH) 0.644 uIU/mL (0.300-4.200); Total Bilirubin 0.31 mg/dL (0.00-1.30)
== END | disposition home or self-care (01) ==
LOC: MFPLAB 16:17
PROVIDERS: PCP Family Medicine; Visit Provider Family Medicine
DX: E11.9 Type 2 diabetes mellitus without complications (principal)
CPT/HCPCS: 36415; 80053; 83036; 84443; 85027

== ENCOUNTER → 2025-05-06 | Outpatient (CLI) | payer OTHER, SELFPAY ==
--- NOTE | 2025-05-06 07:40 | BI_ITS ---
EXAM: SCRN MAMM (CAD)W/GYPSY BILAT DATE: 05/06/2025 CLINICAL HISTORY: F, Age 50 y/o , SCREENING Grandmother with breast cancer. TECHNIQUE: SCRN MAMM (CAD)W/GYPSY BILAT COMPARISON: Prior exam(s) dated June 21, 2022.. FINDINGS: TISSUE DENSITY: There are scattered areas of fibroglandular density. Bilateral Breast Mammographic Findings: No significant masses, calcifications or other abnormalities are identified. Stable benign-appearing bilateral axillary lymph nodes. No suspicious masses, areas of developing architectural distortion, or suspicious calcifications. There has been no significant interval change. BI/SCRN MAMM (CAD)W/GYPSY BILAT IMPRESSION: Stable examination. OVERALL FINAL ASSESSMENT BI-RADS 2: BENIGN RECOMMENDATION: Routine annual follow-up in 1 Year A letter with findings and recommendations will be mailed to the patient. Reading Location: [id number]
== END | disposition home or self-care (01) ==
LOC: OPBI 07:39
PROVIDERS: PCP Family Medicine; Referring Provider Family Medicine; Visit Provider Family Medicine
DX: Z12.31 Encounter for screening mammogram for malignant neoplasm of breast (principal); Z80.3 Family history of malignant neoplasm of breast
CPT/HCPCS: 77063; 77067